=== PATIENT | male | born 1940 | race Caucasian/White ===

== ENCOUNTER 2020-03-14 07:51 | Outpatient (REF) | payer MEDICARE, SELFPAY ==
[2020-03-14 12:49] LABS: Alanine Aminotransferase 27 U/L (0-40); Albumin Level 4.3 g/dL (3.5-5.0); Alkaline Phosphatase 89 U/L (39-117); Anion Gap 12 (12-20); Aspartate Amino Transferase 19 U/L (5-37); Bilirubin Total 1.1 mg/dL (0.0-1.0); Blood Urea Nitrogen 19 mg/dL (9-16); Calcium 8.7 mg/dL (8.4-10.2); Carbon Dioxide 29 mmol/L (22-29); Chloride 104 mmol/L (96-108); Cholesterol 188 mg/dL; Estimated Glomerular Filt Rate 59; Glucose Fasting 99 mg/dL (60-99); HDL Cholesterol 43 mg/dL; LDL Cholesterol Calculated 109 mg/dl; Potassium 4.5 mmol/l (3.3-5.1); Sodium 140 mmol/L (135-145); Total Protein 6.7 g/dL (6.5-8.0); Triglycerides 183 mg/dL
[2020-03-14 13:11] LABS: TSH reflex Free T4 1.53 mIU/mL (0.32-4.0)
[2020-03-14 13:13] LABS: Creatinine Urine 106.23 mg/dL; Microalbum/Creatinine Ratio Ur 5.6 ug/mg cr
== END 2020-03-14 07:52 | disposition home or self-care (01) ==
LOC: HO.WFDLDS 07:51
PROVIDERS: Visit Provider Family Medicine
DX: Z00.00 Encounter for general adult medical examination without abnormal findings (principal); E78.5 Hyperlipidemia, unspecified; I10 Essential (primary) hypertension; Z12.5 Encounter for screening for malignant neoplasm of prostate
CPT/HCPCS: 36415; 80053; 80061; 82043; 84153; 84443

== ENCOUNTER 2020-07-05 07:58 | Outpatient (REF) | payer MEDICARE, SELFPAY ==
[2020-07-05 10:52] LABS: Cholesterol 167 mg/dL; HDL Cholesterol 44 mg/dL; LDL Cholesterol Calculated 100 mg/dl; Triglycerides 119 mg/dL
== END 2020-07-05 07:59 | disposition home or self-care (01) ==
LOC: HO.WFDLDS 07:58
PROVIDERS: Visit Provider Family Medicine
DX: Z00.00 Encounter for general adult medical examination without abnormal findings (principal); E78.5 Hyperlipidemia, unspecified
CPT/HCPCS: 36415; 80061

== ENCOUNTER 2020-09-27 07:09 | Outpatient (REF) | payer MEDICARE, SELFPAY ==
[2020-09-27 12:20] LABS: Cholesterol 153 mg/dL; HDL Cholesterol 40 mg/dL; LDL Cholesterol Calculated 87 mg/dl; Triglycerides 132 mg/dL
== END 2020-09-27 07:10 | disposition home or self-care (01) ==
LOC: HO.WFDLDS 07:09
PROVIDERS: Visit Provider Family Medicine
DX: Z00.00 Encounter for general adult medical examination without abnormal findings (principal); E78.5 Hyperlipidemia, unspecified
CPT/HCPCS: 36415; 80061

== ENCOUNTER 2020-12-30 08:37 | Outpatient (REF) | payer MEDICARE, SELFPAY ==
[2020-12-30 12:04] LABS: Anion Gap 12 (12-20); Blood Urea Nitrogen 19 mg/dL (9-16); Calcium 8.7 mg/dL (8.4-10.2); Carbon Dioxide 27 mmol/L (22-29); Chloride 103 mmol/L (96-108); Estimated Glomerular Filt Rate 60; Glucose Random 112 mg/dL (60-115); Potassium 4.6 mmol/L (3.3-5.1); Sodium 137 mmol/L (135-145)
[2020-12-30 12:43] LABS: Creatinine Urine 134.71 mg/dL; Microalbum/Creatinine Ratio Ur 5.9 ug/mg cr
== END 2020-12-30 08:38 | disposition home or self-care (01) ==
LOC: HO.WFDLDS 08:37
PROVIDERS: Visit Provider Family Medicine
DX: Z00.00 Encounter for general adult medical examination without abnormal findings (principal); I10 Essential (primary) hypertension
CPT/HCPCS: 36415; 80048; 82043

== ENCOUNTER 2021-01-07 07:15 | Outpatient (REF) | payer MEDICARE, SELFPAY ==
[2021-01-07 11:26] LABS: MANUAL DIFF FLAG NO
[2021-01-07 11:35] LABS: Basophils Absolute Auto 0.1 X10*3/uL (0.0-0.2); Basophils Percent Auto 0.9 % (0-2); Eosinophils Absolute Auto 0.5 X10*3/uL (0.0-0.4); Eosinophils Percent Auto 6.8 % (0-4); Hematocrit 47.4 % (42.0-52.0); Hemoglobin 15.6 g/dl (14.0-18.0); Imm Gran Abs Auto 0.02 X10*3/uL (0.00-0.03); Imm Gran Pct Auto 0.3 % (0.0-0.4); Lymphocytes Absolute Auto 2.5 X10*3/uL (1.2-4.9); Lymphocytes Percent Auto 38.2 % (20-40); Mean Corpuscular HGB Conc 32.9 g/dl (31.0-36.0); Mean Corpuscular Hemoglobin 29.9 pg (27.0-33.0); Mean Platelet Volume 9.2 fL (9.4-12.4); Monocytes Absolute Auto 0.5 X10*3/uL (0.1-1.2); Monocytes Percent Auto 6.8 % (2-11); Neutrophils Absolute Auto 3.1 x10*3/uL (2.0-8.3); Platelet Count 196 X10*3/uL (160-400); Red Blood Count 5.21 X10*6/uL (4.60-5.80); Red Cell Distribution Width 13.2 % (11.0-16.0); White Blood Count 6.6 X10*3/uL (4.8-10.8)
[2021-01-07 11:57] LABS: Alanine Aminotransferase 48 U/L (0-40); Albumin Level 4.2 g/dL (3.5-5.0); Alkaline Phosphatase 97 U/L (39-117); Anion Gap 13 (12-20); Aspartate Amino Transferase 26 U/L (5-37); Blood Urea Nitrogen 15 mg/dL (9-16); Calcium 8.9 mg/dL (8.4-10.2); Carbon Dioxide 27 mmol/L (22-29); Chloride 102 mmol/L (96-108); Estimated Glomerular Filt Rate > 60; Glucose Fasting 106 mg/dL (60-99); Potassium 4.5 mmol/L (3.3-5.1); Sodium 137 mmol/L (135-145); Total Protein 6.7 g/dL (6.5-8.0)
[2021-01-07 12:18] LABS: TSH reflex Free T4 2.16 uIU/mL (0.32-4.0)
[2021-01-13 13:57] LABS: Testosterone, Free 51.1 pg/mL (30.0-135.0); Testosterone, Total 437 ng/dL (250-1100)
== END 2021-01-07 07:16 | disposition home or self-care (01) ==
LOC: HO.WFDLDS 07:15
PROVIDERS: PCP Family Medicine; Visit Provider Family Medicine
DX: Z00.00 Encounter for general adult medical examination without abnormal findings (principal); R53.83 Other fatigue
CPT/HCPCS: 36415; 80053; 84402; 84403; 84443; 85025

== ENCOUNTER 2021-04-02 07:50 | Outpatient (REF) | payer OTHER, SELFPAY ==
[2021-04-02 12:07] LABS: Alanine Aminotransferase 36 U/L (0-40); Albumin Level 4.1 g/dL (3.5-5.0); Alkaline Phosphatase 97 U/L (39-117); Anion Gap 10 (12-20); Aspartate Amino Transferase 22 U/L (5-37); Bilirubin Total 1.4 mg/dL (0.0-1.0); Blood Urea Nitrogen 17 mg/dL (9-16); Calcium 9.1 mg/dL (8.4-10.2); Carbon Dioxide 29 mmol/L (22-29); Chloride 103 mmol/L (96-108); Cholesterol 171 mg/dL; Estimated Glomerular Filt Rate > 60; Glucose Fasting 109 mg/dL (60-99); HDL Cholesterol 41 mg/dL; LDL Cholesterol Calculated 87 mg/dl; Potassium 4.1 mmol/L (3.3-5.1); Sodium 138 mmol/L (135-145); Total Protein 6.7 g/dL (6.5-8.0); Triglycerides 215 mg/dL
== END 2021-04-02 07:51 | disposition home or self-care (01) ==
LOC: HO.WFDLDS 07:50
PROVIDERS: Visit Provider Family Medicine
DX: Z00.00 Encounter for general adult medical examination without abnormal findings (principal); Z12.5 Encounter for screening for malignant neoplasm of prostate
CPT/HCPCS: 36415; 80053; 80061; 84153

== ENCOUNTER → 2021-04-22 10:50 | Outpatient (BNVA) | payer OTHER, SELFPAY | PROVIDERS: PCP Family Medicine; Referring Provider Family Medicine; Visit Provider Nurse Practitioner Family | DX: G47.19 Other hypersomnia (principal); R06.83 Snoring; I10 Essential (primary) hypertension; Z86.73 Personal history of transient ischemic attack (TIA), and cerebral infarction without residual deficits | CPT/HCPCS: 99202 ==

== ENCOUNTER → 2021-07-02 10:04 | Outpatient (REF) | payer OTHER, SELFPAY | LOC: HO.SL 10:04 | PROVIDERS: PCP Family Medicine; Visit Provider Nurse Practitioner Family | DX: G47.19 Other hypersomnia (principal); R06.83 Snoring; I10 Essential (primary) hypertension; Z86.73 Personal history of transient ischemic attack (TIA), and cerebral infarction without residual deficits | CPT/HCPCS: 95806 ==

== ENCOUNTER 2021-07-30 07:51 | Outpatient (REF) | payer OTHER, SELFPAY ==
[2021-07-30 10:53] LABS: MANUAL DIFF FLAG NO
[2021-07-30 10:56] LABS: Basophils Percent Auto 0.5 % (0-2); Eosinophils Absolute Auto 0.3 X10*3/uL (0.0-0.4); Eosinophils Percent Auto 4.7 % (0-4); Hematocrit 45.4 % (42.0-52.0); Hemoglobin 14.9 g/dl (14.0-18.0); Imm Gran Abs Auto 0.03 X10*3/uL (0.00-0.03); Imm Gran Pct Auto 0.5 % (0.0-0.4); Lymphocytes Absolute Auto 1.9 X10*3/uL (1.2-4.9); Lymphocytes Percent Auto 33.6 % (20-40); Mean Corpuscular HGB Conc 32.8 g/dl (31.0-36.0); Mean Corpuscular Hemoglobin 29.8 pg (27.0-33.0); Mean Corpuscular Volume 90.8 fL (80.0-98.0); Mean Platelet Volume 9.8 fL (9.4-12.4); Monocytes Absolute Auto 0.4 X10*3/uL (0.1-1.2); Monocytes Percent Auto 7.7 % (2-11); Neutrophils Absolute Auto 3.1 x10*3/uL (2.0-8.3); Platelet Count 173 X10*3/uL (160-400); Red Cell Distribution Width 13.7 % (11.0-16.0); White Blood Count 5.8 X10*3/uL (4.8-10.8)
[2021-07-30 11:02] LABS: INTERNATIONAL NORM RATIO 1.1 (0.9-1.1); Prothrombin Time 12.1 SEC (9.9-13.0)
[2021-07-30 11:05] LABS: Anion Gap 10 (12-20); Blood Urea Nitrogen 16 mg/dL (9-16); Calcium 8.6 mg/dL (8.4-10.2); Carbon Dioxide 27 mmol/L (22-29); Chloride 106 mmol/L (96-108); Estimated Glomerular Filt Rate > 60; Glucose Random 107 mg/dL (60-115); Sodium 139 mmol/L (135-145)
== END 2021-07-30 07:52 | disposition home or self-care (01) ==
LOC: HO.WFDLDS 07:51
PROVIDERS: Visit Provider Family Medicine
DX: Z01.818 Encounter for other preprocedural examination (principal)
CPT/HCPCS: 36415; 80048; 85025; 85610

== ENCOUNTER 2022-05-26 07:50 | Outpatient (REF) | payer MEDICARE, SELFPAY ==
[2022-05-26 10:36] LABS: MANUAL DIFF FLAG NO
[2022-05-26 10:43] LABS: Basophils Absolute Auto 0.1 X10*3/uL (0.0-0.2); Basophils Percent Auto 0.8 % (0-2); Eosinophils Absolute Auto 0.3 X10*3/uL (0.0-0.4); Eosinophils Percent Auto 5.4 % (0-4); Hematocrit 44.7 % (42.0-52.0); Hemoglobin 14.9 g/dl (14.0-18.0); Imm Gran Abs Auto 0.02 X10*3/uL (0.00-0.03); Imm Gran Pct Auto 0.3 % (0.0-0.4); Lymphocytes Absolute Auto 2.5 X10*3/uL (1.2-4.9); Lymphocytes Percent Auto 39.7 % (20-40); Mean Corpuscular HGB Conc 33.3 g/dl (31.0-36.0); Mean Corpuscular Hemoglobin 30.1 pg (27.0-33.0); Mean Corpuscular Volume 90.3 fL (80.0-98.0); Mean Platelet Volume 9.2 fL (9.4-12.4); Monocytes Absolute Auto 0.5 X10*3/uL (0.1-1.2); Monocytes Percent Auto 7.3 % (2-11); Neutrophils Percent Auto 46.5 % (45-73); Platelet Count 167 X10*3/uL (160-400); Red Blood Count 4.95 X10*6/uL (4.60-5.80); Red Cell Distribution Width 13.4 % (11.0-16.0); White Blood Count 6.3 X10*3/uL (4.8-10.8)
[2022-05-26 10:49] LABS: Estimated Average Glucose 123 mg/dL; Hemoglobin A1c % 5.9 %
[2022-05-26 11:22] LABS: Alanine Aminotransferase 36 U/L (0-40); Albumin Level 4.2 g/dL (3.5-5.0); Alkaline Phosphatase 98 U/L (39-117); Anion Gap 10 (12-20); Aspartate Amino Transferase 20 U/L (5-37); Bilirubin Total 1.4 mg/dL (0.0-1.0); Blood Urea Nitrogen 21 mg/dL (9-16); Carbon Dioxide 27 mmol/L (22-29); Chloride 106 mmol/L (96-108); Cholesterol 161 mg/dL; Estimated Glomerular Filt Rate 56; Glucose Fasting 106 mg/dL (60-99); HDL Cholesterol 42 mg/dL; LDL Cholesterol Calculated 94 mg/dl; Sodium 139 mmol/L (135-145); Total Protein 6.4 g/dL (6.5-8.0); Triglycerides 128 mg/dL
[2022-05-26 11:27] LABS: Prostate Specific Antigen Scr 2.22 ng/mL (<0.05-4.0); TSH reflex Free T4 2.13 uIU/mL (0.32-4.0)
== END 2022-05-26 07:51 | disposition home or self-care (01) ==
LOC: HO.WFDLDS 07:50
PROVIDERS: Visit Provider Family Medicine
DX: Z00.00 Encounter for general adult medical examination without abnormal findings (principal); R73.01 Impaired fasting glucose; Z12.5 Encounter for screening for malignant neoplasm of prostate
CPT/HCPCS: 36415; 80053; 80061; 83036; 84153; 84443; 85025

== ENCOUNTER 2022-09-01 09:28 | Outpatient (AMB) | payer MEDICARE, SELFPAY ==
--- NOTE | 2022-09-01 09:33 | A.OFFPC_ITS ---
Vital Signs 09/01/22 09:34 Height 5 ft 10 in Weight 193 lb 6 oz BMI 27.7 BP 120/72 Blood Pressure Location Lt brachial Position Sitting Pulse 73 Pulse Source Pulse Oximeter Pulse Oximetry (%) 96 Oxygen Delivery Method Room Air Intake Visit Reasons: f/u hypertension and pre-diabetes Intake Note: Patient is here to follow up on hypertension and prediabetes. Allergies No Known Allergies Allergy (Verified 09/01/22 09:37) Medication List - Last Reconciled 09/01/22 by Soto Spears MD amlodipine 5 mg PO DAILY 90 days aspirin 81 mg PO DAILY atorvastatin 80 mg PO DAILY 90 days losartan 100 mg PO DAILY 90 days omeprazole 20 mg PO DAILY 90 days Tobacco use date assessed: 09/01/22 Fall risk assessment: 1 Fall in past year Last assessed Fall Risk: 09/01/22 Dental Screening Dental Screen Date: 09/01/22 Did you have a dental visit in the last 12 months?: Yes Did you have a dental problem in the last 6 months where you did not have access to dental care?: No Was dental information given to patient?: No HPI f/u hypertension and pre-diabetes HPI Details 82 y/o male presents to f/u hypertension and pre-diabetes. Blood pressure today is 120/72. He is on amlodipine 5mg and losartan 100mg. A1c today 09/01/22 is 5.6%. [facility] Surgical History History of rotator cuff surgery Family History Father Crohn's disease Mother Congestive heart failure Brother Lupus Social History Household Members: [facility] Alcohol intake: current Alcohol intake frequency: a few times a week Patient Tobacco Use Status: Never used Tobacco e-Cigarette/Vaping Use: Never Used Second Hand Smoke Exposure: No service: Yes Current occupational status: retired Current occupational exposures/hazards: No Cognitive needs: No Hearing needs: Yes (hearing aides) Vision needs: Yes (glasses) Questionnaire Thrive Questionnaire Date Thrive assessed: 02/27/22 ERWIN-7 AMB Questionnaire ERWIN-7 Date ERWIN - 7 assessed: 02/27/22 Source: Developed by Drs. Jacky Pittman, Anuradha Salas, Bryce Grissom and colleagues, with an educational flex from [employer]. Review of Systems Const Denies chills, Denies fatigue, Denies fever(s), Denies headache(s) and Denies weakness ENT Denies dizziness and Denies headache(s) Card Denies dyspnea Resp Denies cough, Denies dyspnea, Denies wheezing and Denies other (shortness of breath) Musc Denies numbness and Denies tingling Neuro Denies dizziness, Denies headache(s), Denies numbness, Denies tingling and Denies weakness Psych Denies anxiety and Denies depression Endo Denies fatigue Aller/Immun Denies wheezing Physical exam (Primary Care) Vital Signs: Last Vital Signs Pulse 73 09/01/22 09:34 BP 120/72 09/01/22 09:34 Pulse Ox 96 09/01/22 09:34 Oxygen Delivery Method Room Air 09/01/22 09:34 BMI result Body Mass Index 27.7 Tobacco/Smoking Status: Tobacco use Status Tobacco use date assessed 09/01/22 09/01/22 09:42 Patient Tobacco Use Status Never used Tobacco 09/01/22 09:36 e-Cigarette/Vaping Use Never Used 09/01/22 09:36 Thrive Assessment: Date of Thrive Assessment Date Thrive assessed 02/27/22 09/01/22 09:36 Const General: well developed; No acute distress Nutritional Appearance: well nourished Orientation/consciousness: patient oriented x3 HENMT Head: Yes normocephalic and Yes atraumatic Eyes General: appearance normal, both eyes and all related structures Pupils: Equal, round and reactive pupils present EOM: EOMs intact bilaterally Resp Effort & Inspection: normal respiratory effort Neuro General: patient oriented x3 and gait normal Cranial nerves: Yes Equal, round and reactive pupils present Psych Affect: normal affect Results AMB Hemoglobin A1c AMB Hemoglobin A1c 5.6 % Last Edit by Vickie Hope CMA on 09/01/22 09:50 Results Reviewed Results Reviewed: Laboratory Last Values Hgb A1c (Clinic) 5.6 % (4.0-6.0) 09/01/22 09:45 Assessment and Plan Assessment & Plan (1) Essential hypertension: Code(s): I10 - Essential (primary) hypertension Plan: Blood pressure is controlled. Goal is less than 140/90 Continue current medication regimen (2) Pre-diabetes: Code(s): R73.03 - Prediabetes Plan: A1c has improved from 5.9% to 5.6%. Encouraged diet low in sugars and starches and encouraged exercise Orders: Orders AMB Hemoglobin A1c Today Z13.9 - Encounter for screening, unspecified Coding Level of Care Code Est Pt Level 4 (26062) Diagnoses Essential hypertension I10 Pre-diabetes R73.03
[2022-09-01 09:34] VITALS: BP 120/72; PULSE 73; O2SAT 96; BMI 27.7
== END 2022-09-01 10:00 | disposition home or self-care (01) ==
PROVIDERS: Visit Provider Family Medicine
DX: I10 Essential (primary) hypertension (principal); R73.03 Prediabetes; Z13.9 Encounter for screening, unspecified
CPT/HCPCS: 83036; 99214

== ENCOUNTER 2023-02-05 09:22 | Outpatient (AMB) | payer MEDICARE, SELFPAY ==
--- NOTE | 2023-02-05 09:28 | A.OFFPC_ITS ---
Vital Signs 02/05/23 09:35 Height 5 ft 10 in Weight 194 lb BMI 27.8 BP 104/60 Blood Pressure Location Lt brachial Position Sitting Respiration 13 Pulse 85 Pulse Source Pulse Oximeter Pulse Oximetry (%) 100 Oxygen Delivery Method Room Air Intake Visit Reasons: f/u hypertension and pre-diabetes Intake Note: Patient is here for a follow up of hypertension and pre-diabetes. Patient reports his blood pressures at home have been 128/60 average. Patient reports he has no concerns at this time. Nicu Rn Required: No Accompanied by: Self / Same As Patient Allergies No Known Allergies Allergy (Verified 02/05/23 09:37) Tobacco use date assessed: 09/01/22 HPI f/u hypertension and pre-diabetes HPI Details Patient?presents?for?follow-up?hypertension?and?pre?diabetes Taking?medication?for?hypertension?as?prescribed.??No?problems?with?this?medicat ion He?is?watching?sugars?and?starches?and?maintaining?his?weight. [facility] Surgical History History of rotator cuff surgery Family History Father Crohn's disease Mother Congestive heart failure Brother Lupus Social History Household Members: [facility] Alcohol intake: current Alcohol intake frequency: a few times a week Patient Tobacco Use Status: Never used Tobacco e-Cigarette/Vaping Use: Never Used Second Hand Smoke Exposure: No service: Yes Current occupational status: retired Current occupational exposures/hazards: No Cognitive needs: No Hearing needs: Yes (hearing aides) Vision needs: Yes (glasses) Questionnaire Thrive Questionnaire Date Thrive assessed: 02/27/22 ERWIN-7 AMB Questionnaire ERWIN-7 Date ERWIN - 7 assessed: 02/27/22 Source: Developed by Drs. Jacky Pittman, Anuradha Salas, Bryce Grissom and colleagues, with an educational flex from [employer]. Review of Systems Const Denies chills, Denies fatigue, Denies fever(s), Denies headache(s) and Denies weakness ENT Denies dizziness and Denies headache(s) Card Denies chest pain, Denies lightheadedness, Denies dyspnea and Denies other (Palpitations) Resp Denies cough, Denies dyspnea, Denies wheezing and Denies other ( shortness of breath) Musc Denies numbness and Denies tingling Neuro Denies dizziness, Denies headache(s), Denies numbness, Denies tingling, Denies paresthesias and Denies weakness Psych Denies anxiety and Denies depression Endo Denies fatigue Aller/Immun Denies wheezing Physical exam (Primary Care) Vital Signs: Last Vital Signs Pulse 85 02/05/23 09:35 Resp 13 02/05/23 09:35 BP 104/60 02/05/23 09:35 Pulse Ox 100 02/05/23 09:35 Oxygen Delivery Method Room Air 02/05/23 09:35 BMI result Body Mass Index 27.8 Tobacco/Smoking Status: Tobacco use Status Tobacco use date assessed 09/01/22 02/05/23 09:28 Patient Tobacco Use Status Never used Tobacco 02/05/23 09:28 e-Cigarette/Vaping Use Never Used 02/05/23 09:28 Thrive Assessment: Date of Thrive Assessment Date Thrive assessed 02/27/22 02/05/23 09:28 Const General: no acute distress and well developed Nutritional Appearance: well nourished Orientation/consciousness: patient oriented x3 [facility] Head: Yes normocephalic and Yes atraumatic Eyes General: appearance normal, both eyes and all related structures Pupils: Equal, round and reactive pupils present EOM: EOMs intact bilaterally Resp Effort & Inspection: normal respiratory effort Auscultation: clear to auscultation bilaterally Cardio Rate: regular rate Rhythm: regular rhythm Heart sounds: S1 normal heart sound present, S2 normal heart sound present, no gallops, no murmurs and no rubs Neuro General: patient oriented x3 and gait normal Cranial nerves: Yes Equal, round and reactive pupils present Psych Affect: normal affect Assessment and Plan Assessment & Plan (1) Pre-diabetes: Code(s): R73.03 - Prediabetes Plan: A1c?at?last?check?had?decreased?from?5.9%?to?5.6%?and?he?is?maintaining?weight?a nd?diet Continue?diet?low?in?sugars?and?starches We?can?check?his?A1c?with?his?next?set?of?lab (2) Essential hypertension: Code(s): I10 - Essential (primary) hypertension Plan: Blood?pressure?is?a ?little?low?today?though?controlled?and?he?has?no?adverse?symptoms.??Goal?is?les s?than?140/90 He?says?blood?pressures?are?consistently?in?the?120s/70s?at?home. Continue?current?medication?regimen Hydrate?well Orders: Orders Comprehensive [place]. Panel Fast Today Z00.00 - Encounter for general adult medical examination without abnormal findings UA and rflx microscopic Today Z00.00 - Encounter for general adult medical examination without abnormal findings Complete Blood Count Auto Diff Today Z00.00 - Encounter for general adult medical examination without abnormal findings Lipid Panel Today Z00.00 - Encounter for general adult medical examination without abnormal findings Microalbumin, Random (w Creat) Today I10 - Essential (primary) hypertension Prostate Specific Antigen Scr Today Z12.5 - Encounter for screening for malignant neoplasm of prostate TSH reflex Free T4 Today Z00.00 - Encounter for general adult medical exa mination without abnormal findings Coding Level of Care Code Est Pt Level 3 (43749) Diagnoses Pre-diabetes R73.03 Essential hypertension I10
[2023-02-05 09:35] VITALS: BP 104/60; PULSE 85; RESP 13; O2SAT 100; BMI 27.8
== END 2023-02-05 09:57 | disposition home or self-care (01) ==
PROVIDERS: PCP Family Medicine; Visit Provider Family Medicine
DX: R73.03 Prediabetes (principal); I10 Essential (primary) hypertension
CPT/HCPCS: 99213

== ENCOUNTER 2023-06-14 08:11 | Outpatient (REF) | payer MEDICARE, SELFPAY ==
[2023-06-14 11:20] LABS: MANUAL DIFF FLAG NO
[2023-06-14 11:31] LABS: Basophils Absolute Auto 0.1 X10*3/uL (0.0-0.2); Basophils Percent Auto 0.8 % (0-2); Eosinophils Absolute Auto 0.3 X10*3/uL (0.0-0.4); Eosinophils Percent Auto 4.7 % (0-4); Hematocrit 44.4 % (42.0-52.0); Hemoglobin 14.7 g/dl (14.0-18.0); Imm Gran Abs Auto 0.03 X10*3/uL (0.00-0.03); Imm Gran Pct Auto 0.5 % (0.0-0.4); Lymphocytes Absolute Auto 2.2 X10*3/uL (1.2-4.9); Lymphocytes Percent Auto 37.1 % (20-40); Mean Corpuscular HGB Conc 33.1 g/dl (31.0-36.0); Mean Corpuscular Hemoglobin 30.4 pg (27.0-33.0); Mean Corpuscular Volume 91.9 fL (80.0-98.0); Mean Platelet Volume 9.6 fL (9.4-12.4); Monocytes Absolute Auto 0.5 X10*3/uL (0.1-1.2); Monocytes Percent Auto 8.4 % (2-11); Neutrophils Absolute Auto 2.9 x10*3/uL (2.0-8.3); Neutrophils Percent Auto 48.5 % (45-73); Platelet Count 161 X10*3/uL (160-400); Red Blood Count 4.83 X10*6/uL (4.60-5.80); Red Cell Distribution Width 13.5 % (11.0-16.0); White Blood Count 5.9 X10*3/uL (4.8-10.8)
[2023-06-14 12:16] LABS: Appearance Urine Clear; Color Urine Yellow; Glucose Urine UA Negative (Negative); Leukocyte Esterase Urine Negative (Negative); Nitrite Urine Negative (Negative); Specific Gravity - Urine 1.015 (1.005-1.025); Urine Blood Negative (Negative); Urine Ketones Negative (Negative); Urine Protein Negative (Neg-Trace)
[2023-06-14 12:50] LABS: Creatinine Urine 95.87 mg/dL; Microalbum/Creatinine Ratio Ur 7.3 ug/mg cr (<30)
[2023-06-14 13:03] LABS: Alanine Aminotransferase 33 U/L (0-40); Albumin Level 4.1 g/dL (3.5-5.0); Alkaline Phosphatase 86 U/L (39-117); Anion Gap 13 (12-20); Aspartate Amino Transferase 20 U/L (5-37); Bilirubin Total 1.2 mg/dL (0.0-1.0); Blood Urea Nitrogen 20 mg/dL (9-16); Calcium 9.1 mg/dL (8.4-10.2); Carbon Dioxide 28 mmol/L (22-29); Chloride 104 mmol/L (96-108); Cholesterol 135 mg/dL (<200); Estimated Glomerular Filt Rate 60; Glucose Fasting 99 mg/dL (60-99); HDL Cholesterol 41 mg/dL (>40); LDL Cholesterol Calculated 65 mg/dL (<100); Sodium 141 mmol/L (135-145); Total Protein 6.8 g/dL (6.5-8.0); Triglycerides 148 mg/dL (<150)
[2023-06-14 13:22] LABS: Prostate Specific Antigen Scr 2.44 ng/mL (<0.05-4.0)
[2023-06-14 13:26] LABS: TSH reflex Free T4 2.17 uIU/mL (0.32-4.0)
== END 2023-06-14 08:12 | disposition home or self-care (01) ==
LOC: HO.WFDLDS 08:11
PROVIDERS: Visit Provider Family Medicine
DX: Z00.00 Encounter for general adult medical examination without abnormal findings (principal); I10 Essential (primary) hypertension; Z12.5 Encounter for screening for malignant neoplasm of prostate
CPT/HCPCS: 36415; 80053; 80061; 81003; 82043; 82570; 84153; 84443; 85025

== ENCOUNTER 2023-06-17 08:55 | Outpatient (AMB) | payer MEDICARE, SELFPAY ==
[2023-06-17 08:56] VITALS: BP 124/62; PULSE 72; RESP 13; TEMP 36.4; O2SAT 97; BMI 28.8
--- NOTE | 2023-06-17 08:56 | A.OFFPC_ITS ---
Vital Signs 06/17/23 08:56 Height 5 ft 10 in Weight 200 lb 8 oz BMI 28.8 BP 124/62 Blood Pressure Location Rt brachial Position Sitting Respiration 13 Pulse 72 Pulse Source Pulse Oximeter Temp 97.5 F Temp Source Temporal Artery Scan Pulse Oximetry (%) 97 Oxygen Delivery Method Room Air Intake Visit Reasons: Extended exam with f/u labs and health maint. Intake Note: Patient does not have any concerns as of right now. Medical Claims Processor Required: No Accompanied by: Self / Same As Patient Allergies No Known Allergies Allergy (Verified 06/17/23 09:03) Medication List - Last Reconciled 06/17/23 by Soto Spears MD amlodipine 5 mg PO DAILY 90 days aspirin 81 mg PO DAILY atorvastatin 80 mg PO DAILY 90 days losartan 100 mg PO DAILY 90 days omeprazole 20 mg PO DAILY 90 days Tobacco use date assessed: 06/17/23 Fall risk assessment: No Falls in past year Last assessed Fall Risk: 06/17/23 Dental Screening Dental Screen Date: 06/17/23 Did you have a dental visit in the last 12 months?: No Did you have a dental problem in the last 6 months where you did not have access to dental care?: No Was dental information given to patient?: Patient has dentist HPI Extended exam with f/u labs and health maint. HPI Details 83 y/o male presents for an extended exa m with f/u labs and health maintenance. Labs were drawn 06/14/23. Reviewed labs with pt. Labs were fine. Pt reports some imbalance. [facility] Medical History (Updated 06/17/23 @ 10:23 by Soto Spears MD) No pertinent past medical history Surgical History History of rotator cuff surgery Family History Father Crohn's disease Mother Congestive heart failure Brother Lupus Social History Household Members: Spouse Both parents involved: No Caregiver staying overnight: No Housing: Condominium Are you a primary home care nurse to a significant other at home: No Do you presently have visiting nurse or other home services: No 75 years or older and lives alone: No Alcohol intake: current Alcohol intake frequency: a few times a week Patient Tobacco Use Status: Never used Tobacco e-Cigarette/Vaping Use: Never Used Second Hand Smoke Exposure: No service: Yes Current occupational status: retired Current occupational exposures/hazards: No Cognitive needs: No Hearing needs: Yes (hearing aides) Vision needs: Yes (glasses) Questionnaire PHQ-9 Over the last 2 weeks, how often have you been bothered by any of the following problems? 1. Little interest or pleasure in doing things: not at all 2. Feeling down, depressed, or hopeless: several days 3. Trouble falling or staying asleep, or sleeping too much: not at all 4. Feeling tired or having little energy: several days 5. Poor appetite or overeating: nearly every day 6. Feeling bad about yourself - or that you are a failure or have let yourself or your family down: not at all 7. Trouble concentrating on things, such as reading the newspaper or watching television: not at all 8. Moving or speaking so slowly that other people could have noticed. Or the opposite - being so fidgety or restless that you have been moving around a lot more than usual: not at all 9. Thoughts that you would be better off or of hurting yourself in some way: not at all Total score: 5 Depression Screening Interpretation: Negative Depression Screening Done: Yes 25772 - PHQ-9 Billing: Yes Source: Developed by Drs. Jacky Pittman, Anuradha aSlas, Bryce Grissom and colleagues, with an educational flex from [employer] Document Preparation. Thrive Questionnaire Date Thrive assessed: 06/17/23 I am a: Patient What is your living situation today?: I have a steady place to live Within the past 12 months, did the food you bought not last and you didn't have the money to get more?: Never true Within the past 12 months, did you worry whether your food would run out before you got money to buy more?: Never true Do you have trouble paying for medicines?: No Do you have trouble getting transportation to medical appointments?: No Do you have trouble paying your heating and electricity bill?: No Do you have trouble taking care of your child, family member or friend?: No Do you have trouble with day-to-day activities such as bathing, preparing meals, shopping, managing finances, etc.?: No Are you currently unemployed and looking for a job?: No Are you interested in more education?: No Please select the resources that you would like help with: None Currently or been in a relationship where the following occur: no concerns reported THRIVE Score: 0 AUDIT C Alcohol Use Questionnaire (AUDIT-C) 1. How often do you have a drink containing alcohol?: 2-4 times a month 2. How many drinks containing alcohol do you have on a typical day when you are drinking?: 1 or 2 3. How often do you have six or more drinks on one occasion?: Never Total Score: 2 ERWIN-7 AMB Questionnaire ERWIN-7 Date ERWIN - 7 assessed: 06/17/23 Feeling nervous, anxious, or on edge: 1 = Several days Not being able to stop or control worryin = Several days Worrying too much about different things: 1 = Several days Trouble relaxin = Not at all Being so restless that it is hard to sit still: 0 = Not at all Becoming easily annoyed or irritable: 0 = Not at all Feeling afraid as if something awful might happen: 1 = Several days Total ERWIN-7 score (0-4 normal; 5-9 mild; 10-14 moderate; 15-21 severe): 4 Source: Developed by Drs. Jacky Pittman, Anuradha Salas, Bryce Grissom and colleagues, with an educational flex from [employer] Document Preparation. ERWIN-7 Assessment Billing ERWIN-7 Assessment Tool: ERWIN-7 Assessment 56418 Review of Systems Const Denies chills, Denies fatigue, Denies fever(s), Denies headache(s) and Denies weakness Eyes Denies change in vision ENT Denies dizziness, Denies headache(s), Denies hearing loss, Denies nasal congestion, Denies sinus pain, Denies sinus pressure and Denies sore throat Card Denies chest pain, Denies lightheadedness, Denies dyspnea and Denies other (palpitations) Resp Denies cough, Denies dyspnea and Denies wheezing GI Denies abdominal pain, Denies melena, Denies hematochezia, Denies change in bowel habits, Denies dyspepsia and Denies nausea Denies hematuria and Denies dysuria Musc Denies abnormal gait, Denies myalgias, Denies arthralgias, Denies numbness and Denies tingling Skin/Breast Denies rash, Denies unusual bruising and Denies wounds Neuro Denies abnormal gait, Denies dizziness, Denies headache(s), Denies memory loss, Denies numbness, Denies Sensory deficit (Neuro), Denies tingling and Denies weakness Psych Denies anxiety, Denies depression and Denies memory loss Endo Denies cold intolerance, Denies fatigue, Denies heat intolerance, Denies polydipsia and Denies polyuria Al/Lymph Denies easy bleeding and Denies easy bruising Aller/Immun Denies wheezing Physical exam (Primary Care) Vital Signs: Last Vital Signs Temp 97.5 F 06/17/23 08:56 Pulse 72 06/17/23 08:56 Resp 13 06/17/23 08:56 BP 124/62 06/17/23 08:56 Pulse Ox 97 06/17/23 08:56 Oxygen Delivery Method Room Air 06/17/23 08:56 BMI result Body Mass Index 28.8 Tobacco/Smoking Status: Tobacco use Status Tobacco use date assessed 06/17/23 06/17/23 09:08 Patient Tobacco Use Status Never used Tobacco 06/17/23 09:08 e-Cigarette/Vaping Use Never Used 06/17/23 09:08 PHQ-9: PHQ-9 Score PHQ-9: Total score 5 06/17/23 10:09 Depression Screening Interpretation: Negative Thrive Assessment: Date of Thrive Assessment Date Thrive assessed 06/17/23 06/17/23 09:08 Currently or been in a relationship where the following occur: no concerns reported Const General: no acute distress, well developed, alert and awake Nutritional Appearance: well nourished Orientation/consciousness: patient oriented x3 HENMT Head: Yes normocephalic and Yes atraumatic Ears: hearing grossly normal bilaterally and TM's normal bilaterally General nose exam: Normal external nose present and Normal nares present Mouth: Normal oral and palatal mucosa present and moist mucous membranes Teeth and gingiva: dentition normal Throat: Yes posterior oropharynx normal Eyes General: appearance normal, both eyes and all related structures Pupils: Equal, round and reactive pupils present and Pupil accommodation reflex normal EOM: EOMs intact bilaterally Neck Neck: Yes normal visual inspection, Yes no lymphadenopathy and Yes trachea midline Thyroid: Thyroid normal Carotids: no bruits Lymphatic: no lymphadenopathy noted Chest Chest palpation & inspection: normal inspection of the chest Resp Effort & Inspection: normal respiratory effort Auscultation: clear to auscultation bilaterally Cardio Rate: regular rate Rhythm: regular rhythm Heart sounds: S1 normal heart sound present, S2 normal heart sound present, no gallops, no murmurs and no rubs Bruits: no abdominal aortic bruits and no carotid bruits GI Palpation (GI): No Abdominal aortic bruit present, Soft to palpation, nontender, No hepatosplenomegaly present and No Rebound tenderness present Auscultation: normal bowel sounds General: Yes no CVA tenderness Back/Spine/Pelvis Back: no CVA tenderness Cervical Spine: cervical ROM normal and No Cervical spine tenderness Thoracic/Lumbar Spine: thoraco-lumbar ROM normal, No pain with thoraco-lumbar ROM, No thoracic spinal tenderness and No lumbar spinal tenderness Skin Lesions: no lesions Rashes: no rashes Trauma: no lacerations or abrasions Wounds: no wounds Nails: normal Neuro General: patient oriented x3 Cranial nerves: Yes Equal, round and reactive pupils present Cognition (Neuro): normal cognition Gait exam (Neuro): Normal gait present Motor exam (neuro): 5/5 motor strength present throughout Sensory Exam: No Sensory deficit (Neuro) Deep tendon reflexes (DTR's): Right patellar reflex intensity grade: 2+ and Left patellar reflex intensity grade: 2+ Extrem General: Yes normal to inspection and No edema Psych Appearance: grossly normal Affect: normal affect Attitude: cooperative Thought process: Normal thought process present Assessment and Plan Assessment & Plan (1) Pre-diabetes: Code(s): R73.03 - Prediabetes Plan: A1c?6.0%;?still?in?pre?diabetes?range Encouraged?diet?lower?in?sugars?and?starches Encouraged?exercise?and?weight?control (2) Imbalance: Code(s): R26.89 - Other abnormalities of gait and mobility Plan: Mild?imbalance?for?the?past?few?years?which?he?attributes?to?his?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 Declined?physical?therapy/balance?training?but?he?will?let?me?know?if?this?stevens es?in?any?way. 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 Referred?to?dermatology (6) Annual physical exam: Code(s): Z00.00 - Encounter for general adult medical examination without abnormal findings Plan: 83-year-old?male?presents?for?an?extended?exam Encouraged?healthy?diet?with?active?lifestyle?and?plenty?of?exercise Orders: Orders AMB Hemoglobin A1c Today R73.01 - Impaired fasting glucose, R73.03 - Prediabetes Referrals Dermatology Referral D48.5 - Neoplasm of uncertain behavior of skin Coding Level of Care Code Est Pt Level 4 (89367) Diagnoses Pre-diabetes R73.03 Imbalance R26.89 Hyperlipidemia E78.5 Essential hypertension I10 Neoplasm of uncertain behavior of skin D48.5 Annual physical exam Z00.00 Additional Codes ERWIN-7 Assessment Billing - ERWIN-7 Assessment Tool: ERWIN-7 Assessment 25111 ([id number])
== END 2023-06-17 10:44 | disposition home or self-care (01) ==
PROVIDERS: PCP Family Medicine; Visit Provider Family Medicine
DX: Z00.00 Encounter for general adult medical examination without abnormal findings (principal); R73.03 Prediabetes; R26.89 Other abnormalities of gait and mobility; E78.5 Hyperlipidemia, unspecified; I10 Essential (primary) hypertension; D48.5 Neoplasm of uncertain behavior of skin
CPT/HCPCS: 99397

== ENCOUNTER 2024-02-11 08:20 | Outpatient (AMB) | payer MEDICARE, SELFPAY ==
--- NOTE | 2024-02-11 08:33 | MHC.PC.OV ---
Vital Signs 02/11/24 08:40 Height 5 ft 10 in Weight 201 lb 6 oz BMI 28.9 BP 126/60 Blood Pressure Location Lt brachial Position Sitting Respiration 16 Pulse 86 Pulse Source Palpation Temp 98.6 F Temp Source Oral Intake Visit Reasons: hypertension, pre diabetes and chronic conditions. Intake Note: f/u htn and pre-dm Allergies No Known Allergies Allergy (Verified 02/11/24 08:40) Medication List - Last Reconciled 02/11/24 by Soto Spears MD amlodipine 5 mg PO DAILY 90 days aspirin 81 mg PO DAILY atorvastatin 80 mg PO DAILY 90 days losartan 100 mg PO DAILY 90 days omeprazole 20 mg PO DAILY 90 days Tobacco use date assessed: 06/17/23 Dental Screening Dental Screen Date: 06/17/23 HPI hypertension, pre diabetes and chronic conditions. HPI Details 83 y/o male presents to f/u hypertension, pre-diabetes, chronic conditions. A1c today 02/11/24 5.9%, which improved from 6.0%. Blood pressure today 126/60, 86p. He is on losartan, amlodipine. HPI Comments History of Present Illness Details Documentation assistance for Soto Spears MD, was provided by Clayton Cortez,? Production Maintenance Technician on 02/11/2024 at 8:32 AM EST. I, Dr. Spears, have read, observed, and verified documentation. [facility] Medical History (Updated 06/17/23 @ 10:23 by Soto Spears MD) No pertinent past medical history Surgical History History of rotator cuff surgery Family History Father Crohn's disease Mother Congestive heart failure Brother Lupus Social History Household Members: Spouse Both parents involved: No Caregiver staying overnight: No Housing: Condominium Are you a primary primary care nurse practitioner to a significant other at home: No Do you presently have visiting nurse or other home services: No 75 years or older and lives alone: No Alcohol intake: current Alcohol intake frequency: a few times a week Patient Tobacco Use Status: Never used Tobacco e-Cigarette/Vaping Use: Never Used Second Hand Smoke Exposure: No service: Yes Current occupational status: retired Current occupational exposures/hazards: No Cognitive needs: No Hearing needs: Yes (hearing aides) Vision needs: Yes (glasses) Questionnaire Thrive Questionnaire Date Thrive assessed: 02/04/24 I am a: Patient What is your living situation today?: I have a steady place to live Within the past 12 months, did the food you bought not last and you didn't have the money to get more?: Sometimes True Within the past 12 months, did you worry whether your food would run out before you got money to buy more?: Sometimes True Do you have trouble paying for medicines?: No Do you have trouble getting transportation to medical appointments?: No Do you have trouble paying your heating and electricity bill?: No Do you have trouble taking care of your child, family member or friend?: No Do you have trouble with day-to-day activities such as bathing, preparing meals, shopping, managing finances, etc.?: No Are you currently unemployed and looking for a job?: No Are you interested in more education?: No Please select the resources that you would like help with: Utilities Currently or been in a relationship where the following occur: No concerns reported THRIVE Score: 2 AUDIT C Alcohol Use Questionnaire (AUDIT-C) 1. How often do you have a drink containing alcohol?: 2-4 times a month 2. How many drinks containing alcohol do you have on a typical day when you are drinking?: 1 or 2 3. How often do you have six or more drinks on one occasion?: Never Total Score: 2 ERWIN-7 AMB Questionnaire ERWIN-7 Date ERWIN - 7 assessed: 06/17/23 Feeling nervous, anxious, or on edge: 0 = Not at all Worrying too much about different things: 0 = Not at all Trouble relaxin = Not at all Being so restless that it is hard to sit still: 0 = Not at all Becoming easily annoyed or irritable: 0 = Not at all Feeling afraid as if something awful might happen: 0 = Not at all Source: Developed by Drs. Jacky Pittman, Anuradha Salas, Bryce Grissom and colleagues, with an educational flex from [employer]. Review of Systems Const Denies chills, Denies fatigue, Denies fever(s), Denies headache(s) and Denies weakness ENT Denies dizziness and Denies headache(s) Card Denies dyspnea Resp Denies cough, Denies dyspnea, Denies wheezing and Denies other (shortness of breath) Musc Denies numbness and Denies tingling Neuro Denies dizziness, Denies headache(s), Denies numbness, Denies tingling and Denies weakness Psych Denies anxiety and Denies depression Endo Denies fatigue Aller/Immun Denies wheezing Physical exam (Primary Care) Vital Signs: Last Vital Signs Temp 98.6 F 02/11/24 08:40 Pulse 86 02/11/24 08:40 Resp 16 02/11/24 08:40 BP 126/60 02/11/24 08:40 BMI result Body Mass Index 28.9 Tobacco/Smoking Status: Tobacco use Status Tobacco use date assessed 06/17/23 02/11/24 08:33 Patient Tobacco Use Status Never used Tobacco 02/11/24 08:33 e-Cigarette/Vaping Use Never Used 02/11/24 08:33 Thrive Assessment: Date of Thrive Assessment Date Thrive assessed 02/04/24 02/11/24 08:33 Currently or been in a relationship where the following occur: No concerns reported Const General: well developed; No acute distress Nutritional Appearance: well nourished Orientation/consciousness: patient oriented x3 [facility] Head: Yes normocephalic and Yes atraumatic Eyes General: appearance normal, both eyes and all related structures Pupils: Equal, round and reactive pupils present EOM: EOMs intact bilaterally Resp Effort & Inspection: normal respiratory effort Neuro General: patient oriented x3 and gait normal Cranial nerves: Yes Equal, round and reactive pupils present Psych Affect: normal affect Coding Level of Care Code Est Pt Level 3 (80378) Diagnoses Essential hypertension I10 Pre-diabetes R73.03 Assessment & Plan Assessment & Plan (1) Essential hypertension: Code(s): I10 - Essential (primary) hypertension Category: Medical Plan: Blood?pressure?is?controlled.??Goal?is?less?than?140/90 Continue?current?medications (2) Pre-diabetes: Code(s): R73.03 - Prediabetes Category: Medical Plan: A1c?5.9%?today?in?down?from?6.0?at?last?check Encouraged?ongoing?diet?low?in?sugars?and?starches,?weight?control?and?exercise
[2024-02-11 08:40] VITALS: BP 126/60; PULSE 86; RESP 16; TEMP 37; BMI 28.9
== END 2024-02-11 08:58 | disposition home or self-care (01) ==
PROVIDERS: PCP Family Medicine; Visit Provider Family Medicine
DX: I10 Essential (primary) hypertension (principal); R73.03 Prediabetes

== ENCOUNTER → 2024-02-11 08:20 | Outpatient (BNVA) | payer MEDICARE, SELFPAY | PROVIDERS: PCP Family Medicine; Visit Provider Family Medicine | DX: I10 Essential (primary) hypertension (principal); R73.03 Prediabetes | CPT/HCPCS: 99212 ==

== ENCOUNTER 2024-05-30 09:31 | Outpatient (AMB) | payer OTHER, SELFPAY ==
--- NOTE | 2024-05-30 09:44 | MHC.PC.OV ---
Vital Signs 05/30/24 09:50 Height 5 ft 10 in Weight 202 lb BMI 29.0 BP 120/80 Blood Pressure Location Lt brachial Position Sitting Pulse 70 Pulse Source Pulse Oximeter Temp 98.4 F Temp Source Oral Pulse Oximetry (%) 98 Oxygen Delivery Method Room Air Intake Visit Reasons: f/u hypertension, pre-diabetes Intake Note: patient is coming in for htn and pre diabetes follow-up Agricultural Inspector Required: No Allergies No Known Allergies Allergy (Verified 05/30/24 09:49) Medication List - Last Reconciled 05/30/24 by Soto Spears MD amlodipine 5 mg PO DAILY 90 days aspirin 81 mg PO DAILY atorvastatin 80 mg PO DAILY 90 days losartan 100 mg PO DAILY 90 days omeprazole 20 mg PO DAILY 90 days Tobacco use date assessed: 05/30/24 Dental Screening Dental Screen Date: 06/17/23 HPI f/u hypertension, pre-diabetes HPI Details 84 y/o male presents to f/u HTN, pre-diabetes. Blood pressure today 120/80. He is on amlodipine 5mg, losartan 100mg daily. A1c today 6.0%. [facility] Medical History (Updated 06/17/23 @ 10:23 by Soto Spears MD) No pertinent past medical history Surgical History History of rotator cuff surgery Family History Father Crohn's disease Mother Congestive heart failure Brother Lupus Social History Household Members: Spouse Both parents involved: No Caregiver staying overnight: No Housing: Condominium Are you a primary career development engineer to a significant other at home: No Do you presently have visiting nurse or other home services: No 75 years or older and lives alone: No Alcohol intake: current Alcohol intake frequency: a few times a week Patient Tobacco Use Status: Never used Tobacco e-Cigarette/Vaping Use: Never Used Second Hand Smoke Exposure: No service: Yes Current occupational status: retired Current occupational exposures/hazards: No Cognitive needs: No Hearing needs: Yes (hearing aides) Vision needs: Yes (glasses) Questionnaire Thrive Questionnaire Date Thrive assessed: 05/24/24 ERWIN-7 AMB Questionnaire ERWIN-7 Date ERWIN - 7 assessed: 06/17/23 Source: Developed by Drs. Jacky Pittman, Anuradha Salas, Bryce Grissom and colleagues, with an educational flex from [employer]. Review of Systems Const Denies chills, Denies fatigue, Denies fever(s), Denies headache(s) and Denies weakness ENT Denies dizziness and Denies headache(s) Card Denies dyspnea Resp Denies cough, Denies dyspnea, Denies wheezing and Denies other (shortness of breath) Musc Denies numbness and Denies tingling Neuro Denies dizziness, Denies headache(s), Denies numbness, Denies tingling and Denies weakness Psych Denies anxiety and Denies depression Endo Denies fatigue Aller/Immun Denies wheezing Physical exam (Primary Care) Vital Signs: Last Vital Signs Temp 98.4 F 05/30/24 09:50 Pulse 70 05/30/24 09:50 BP 120/80 05/30/24 09:50 Pulse Ox 98 05/30/24 09:50 Oxygen Delivery Method Room Air 05/30/24 09:50 BMI result Body Mass Index 29.0 Tobacco/Smoking Status: Tobacco use Status Tobacco use date assessed 05/30/24 05/30/24 09:53 Patient Tobacco Use Status Never used Tobacco 05/30/24 09:44 e-Cigarette/Vaping Use Never Used 05/30/24 09:44 Thrive Assessment: Date of Thrive Assessment Date Thrive assessed 05/24/24 05/30/24 09:44 Const General: well developed; No acute distress Nutritional Appearance: well nourished Orientation/consciousness: [facility] oriented x3 [facility] Head: Yes normocephalic and Yes atraumatic Eyes General: appearance normal, both eyes and all related structures Pupils: Equal, round and reactive pupils present EOM: EOMs intact bilaterally Resp Effort & Inspection: normal respiratory effort Auscultation: clear to auscultation bilaterally Cardio Rate: regular rate Rhythm: regular rhythm Heart sounds: S1 normal heart sound present, S2 normal heart sound present, no gallops, no murmurs and no rubs Neuro General: patient oriented x3 and gait normal Cranial nerves: Yes Equal, round and reactive pupils present Psych Affect: normal affect Coding Level of Care Code Est Pt Level 3 (73925) Diagnoses Essential hypertension I10 Pre-diabetes R73.03 Assessment & Plan Assessment & Plan (1) Essential hypertension: Code(s): I10 - Essential (primary) hypertension Category: Medical Plan: Blood?pressure?120/80?is?good?control.??Goal?is?less?than?140/90 Continue?current?medications (2) Pre-diabetes: Code(s): R73.03 - Prediabetes Category: Medical Plan: A1c?6.0%. ?Still?in?pre?diabetes?range Encouraged?diet?low?in?sugars?and?starches Encouraged?exercise?and?some?weight?loss
[2024-05-30 09:50] VITALS: BP 120/80; PULSE 70; TEMP 36.9; O2SAT 98; BMI 29.0
== END 2024-05-30 10:20 | disposition home or self-care (01) ==
LOC: HO.HMCFM 09:31
PROVIDERS: PCP Family Medicine; Visit Provider Family Medicine
DX: I10 Essential (primary) hypertension (principal); R73.03 Prediabetes

== ENCOUNTER → 2024-05-30 09:31 | Outpatient (BNVA) | payer OTHER, SELFPAY | PROVIDERS: PCP Family Medicine; Visit Provider Family Medicine | DX: R73.03 Prediabetes (principal); I10 Essential (primary) hypertension; Z79.899 Other long term (current) drug therapy | CPT/HCPCS: 83036 ==

== ENCOUNTER 2024-11-01 15:51 | Outpatient (AMB) | payer OTHER, SELFPAY ==
--- NOTE | 2024-11-01 15:57 | A.OFFPC_ITS ---
Vital Signs 11/01/24 16:01 Height 5 ft 10 in Weight 192 lb BMI 27.5 BP 112/62 Blood Pressure Location Rt brachial Position Sitting Respiration 16 Pulse 72 Pulse Source Pulse Oximeter Temp 97.9 F Temp Source Temporal Artery Scan Pulse Oximetry (%) 95 Oxygen Delivery Method Room Air Intake Visit Reasons: f/u HTN, preDM RE Intake Note: Can presents in the office today for prediabetes and hypertension as well as his Cologuard results. Allergies No Known Allergies Allergy (Verified 11/01/24 16:00) Medication List - Last Reconciled 11/01/24 by Soto Spears MD amlodipine 5 mg PO DAILY 90 days aspirin 81 mg PO DAILY atorvastatin 80 mg PO DAILY 90 days losartan 100 mg PO DAILY 90 days omeprazole 20 mg PO DAILY 90 days Tobacco use date assessed: 11/01/24 Fall risk assessment: No Falls in past year Last assessed Fall Risk: 11/01/24 Dental Screening Dental Screen Date: 11/01/24 Did you have a dental visit in the last 12 months?: Yes Did you have a dental problem in the last 6 months where you did not have access to dental care?: No Was dental information given to patient?: Patient has dentist HPI f/u HTN, preDM RE HPI Details 84 y/o male presents to f/u HTN, pre-ana maria norma. BP today 112/62, 72p. He is on amlodipine 5mg, losartan 100mg daily. A1c today 11/01/24 5.8%. [facility] Medical History (Updated 10/25/24 @ 11:02 by SONIA Alonso-) No pertinent past medical history Surgical History History of rotator cuff surgery Family History Father Crohn's disease Mother Congestive heart failure Brother Lupus Social History (Updated 11/01/24 @ 16:01 by Rhiannon Juárez CMA) Household Members: Spouse Both parents involved: No Caregiver staying overnight: No Housing: Condominium Are you a primary personal care worker to a significant other at home: No Do you presently have visiting nurse or other home services: No 75 years or older and lives alone: No Alcohol intake: current Alcohol intake frequency: a few times a week Patient Tobacco Use Status: Never used Tobacco e-Cigarette/Vaping Use: Never Used Second Hand Smoke Exposure: No service: Yes Current occupational status: retired Current occupational exposures/hazards: No Cognitive needs: No Hearing needs: Yes (hearing aides) Vision needs: Yes (glasses) Questionnaire Thrive Questionnaire Date Thrive assessed: 05/24/24 I am a: Patient What is your living situation today?: I have a steady place to live Within the past 12 months, did the food you bought not last and you didn't have the money to get more?: I choose not to answer this question Within the past 12 months, did you worry whether your food would run out before you got money to buy more?: I choose not to answer this question Do you have trouble paying for medicines?: I choose not to answer this question Do you have trouble getting transportation to medical appointments?: No Do you have trouble paying your heating and electricity bill?: I choose not to answer this question Do you have trouble taking care of your child, family member or friend?: I choose not to answer this question Do you have trouble with day-to-day activities such as bathing, preparing meals, shopping, managing finances, etc.?: No Are you currently unemployed and looking for a job?: No Are you interested in more education?: No Please select the resources that you would like help with: Utilities Currently or been in a relationship where the following occur: No concerns reported THRIVE Score: 0 ERWIN-7 AMB Questionnaire ERWIN-7 Date ERWIN - 7 assessed: 06/17/23 Source: Developed by Drs. Jacky Pittman, Anuradha Salas, Bryce Grissom and colleagues, with an educational flex from [employer]. Review of Systems Const Denies chills, Denies fatigue, Denies fever(s), Denies headache(s) and Denies weakness ENT Denies dizziness and Denies headache(s) Card Denies dyspnea Resp Denies cough, Denies dyspnea, Denies wheezing and Denies other (shortness of breath) Musc Denies numbness and Denies tingling Neuro Denies dizziness, Denies headache(s), Denies numbness, Denies tingling and Denies weakness Psych Denies anxiety and Denies depression Endo Denies fatigue Aller/Immun Denies wheezing Physical exam (Primary Care) Vital Signs: Last Vital Signs Temp 97.9 F 11/01/24 16:01 Pulse 72 11/01/24 16:01 Resp 16 11/01/24 16:01 BP 112/62 11/01/24 16:01 Pulse Ox 95 11/01/24 16:01 Oxygen Delivery Method Room Air 11/01/24 16:01 BMI result Body Mass Index 27.5 Tobacco/Smoking Status: Tobacco use Status Tobacco use date assessed 11/01/24 11/01/24 16:05 Patient Tobacco Use Status Never used Tobacco 11/01/24 16:01 e-Cigarette/Vaping Use Never Used 11/01/24 16:01 Thrive Assessment: Date of Thrive Assessment Date Thrive assessed 05/24/24 11/01/24 15:59 Currently or been in a relationship where the following occur: No concerns reported Const General: well developed; No acute distress Nutritional Appearance: well nourished Orientation/consciousness: patient oriented x3 [facility] Head: Yes normocephalic and Yes atraumatic Eyes General: appearance normal, both eyes and all related structures Pupils: Equal, round and reactive pupils present EOM: EOMs intact bilaterally Resp Effort & Inspection: normal respiratory effort Neuro General: patient oriented x3 and gait normal Cranial nerves: Yes Equal, round and reactive pupils present Psych Affect: normal affect Results AMB Hemoglobin A1c AMB Hemoglobin A1c 5.8 % Last Edit by Rhiannon Juárez CMA on 11/01/24 16:18 Results Reviewed Results Reviewed: Laboratory Last Values Hgb A1c (Clinic) 5.8 % (4.0-6.0) 11/01/24 16:06 Coding Level of Care Code Est Pt Level 4 (12427) Diagnoses Pre-diabetes R73.03 Essential hypertension I10 History of TIA (transient ischemic attack) Z86.73 Screening for colon cancer Z12.11 Positive colorectal cancer screening using Cologuard test R19.5 Assessment & Plan Assessment & Plan (1) Pre-diabetes: Code(s): R73.03 - Prediabetes Category: Medical Plan: A1c 5.8% -lower end of pre diabetes range and improved. Continue working on diet low in sugars and starches. Continue regular exercise and control weight (2) Essential hypertension: Code(s): I10 - Essential (primary) hypertension Category: Medical Plan: Blood pressure is controlled. Goal is less than 130/80 Continue current medications (3) History of TIA (transient ischemic attack): Code(s): Z86.73 - Personal history of transient ischemic attack (TIA), and cerebral infarction without residual deficits Category: Medical Plan: History of TIA. No residual effects He is on atorvastatin and aspirin Blood pressure is well controlled. Lipids were well controlled at last check Will recheck lipids with his pre physical labs before his May appointment (4) Screening for colon cancer: Code(s): Z12.11 - Encounter for screening for malignant neoplasm of colon Category: Medical (5) Positive colorectal cancer screening using Cologuard test: Onset Date: ~10/2024 Code(s): R19.5 - Other fecal abnormalities Category: Medical Plan Positive Cologuard test, ordered by Nathalie. Patient is 84 years old but quite healthy. Will refer him to Gastroenterology to consider next steps. Orders: Orders AMB Hemoglobin A1c Today R73.03 - Prediabetes Referrals Gastroenterology Referral R19.5 - Other fecal abnormalities
[2024-11-01 16:01] VITALS: BP 112/62; PULSE 72; RESP 16; TEMP 36.6; O2SAT 95; BMI 27.5
== END 2024-11-01 16:58 | disposition home or self-care (01) ==
LOC: HO.HMCFM 15:52
PROVIDERS: PCP Family Medicine; Visit Provider Family Medicine
DX: R73.03 Prediabetes (principal); I10 Essential (primary) hypertension; Z86.73 Personal history of transient ischemic attack (TIA), and cerebral infarction without residual deficits; Z12.11 Encounter for screening for malignant neoplasm of colon; R19.5 Other fecal abnormalities

== ENCOUNTER → 2024-11-01 15:51 | Outpatient (BNVA) | payer OTHER, SELFPAY | PROVIDERS: PCP Family Medicine; Visit Provider Family Medicine | DX: I10 Essential (primary) hypertension (principal); R73.03 Prediabetes; R19.5 Other fecal abnormalities; Z86.73 Personal history of transient ischemic attack (TIA), and cerebral infarction without residual deficits | CPT/HCPCS: 83036 ==

== ENCOUNTER 2024-11-06 09:12 | Outpatient (AMB) | payer OTHER, SELFPAY ==
--- NOTE | 2024-11-06 10:07 | MHC.PC.OV ---
Vital Signs 11/06/24 10:10 Height 5 ft 10 in Weight 196 lb 5 oz BMI 28.2 BP 124/66 Blood Pressure Location Lt brachial Position Sitting Respiration 12 Pulse 66 Pulse Source Pulse Oximeter Temp 97.8 F Temp Source Oral Pulse Oximetry (%) 93 Oxygen Delivery Method Room Air Intake Visit Reasons: uinating blood Intake Note: Patient c/o bleeding when urinating it started last Wednesday. Orthopedic Physical Therapist Required: No Allergies No Known Allergies Allergy (Verified 11/06/24 10:10) Medication List - Last Reconciled 11/06/24 by Yeny Painting, ENVIRONMENTAL COMMUNICATIONS SPECIALIST- amlodipine 5 mg PO DAILY 90 days aspirin 81 mg PO DAILY atorvastatin 80 mg PO DAILY 90 days losartan 100 mg PO DAILY 90 days omeprazole 20 mg PO DAILY 90 days Tobacco use date assessed: 11/01/24 Fall risk assessment: No Falls in past year Last assessed Fall Risk: 11/06/24 Dental Screening Dental Screen Date: 11/01/24 HPI HPI Comments History of Present Illness Details History of Present Illness The patient is an 84-year-old male presenting with blood in urine. Hematuria: - Noted Wednesday morning. - Significant blood visible in toilet bowl. - No pain or burning sensation reported. - Single episode; no reoccurrence. - Does not smoke; no fhx of bladder ca; denies known exposures. No pain. No fever or signs of infection. Wt stable. Positive Cologuard Test: - Positive test recently received. - Awaiting technical writing lead/mgr consultation. Review of Systems - Genitourinary: Reports blood in urine, denies pain or burning sensation. - Gastrointestinal: Denies changes in bowel habits, weight changes, family history of colon cancer. Due for flu shot Physical Exam General: Well developed, well nourished, in no acute distress. Appears stated age. Head: Normocephalic, atraumatic. Eyes: Pupils are equal, round and reactive to light and accommodation. Conjunctivae are clear. . Lungs: Clear to auscultation bilaterally. No rales, rhonchi or wheeze noted. Good air flow in all ortega. Heart: Regular rate and rhythm. No murmurs, click, rubs or gallops are noted. Abdomen: Bowel sounds present in all quadrants. The abdomen is soft, nontender, with no masses or organomegaly noted. No hernias are noted. No pain or pressure noted upon examination. No CVAT. Psych: Mood and affect appropriate. Results See UA below Discussion Notes I discussed with the patient the potential implications of painless hematuria, especially when combined with a positive Cologuard test, emphasizing the need for further evaluation to rule out cancer in both the bladder and the colon. I informed him that the urine sample would be sent for cytology to examine cellular abnormalities, and advised an urgent urology referral due to the concerning symptoms. Additionally, I communicated the importance of promptly addressing the positive Cologuard results with a technical writing lead/mgr. I have contacted the gastroenterology department to expedite the scheduling of an appointment. Urgent referral to a urology group based at [facility] was arranged at the patient's preference, with a specimen cup provided for any future episodes of bleeding. Patient was given time to ask questions. All questions were answered to their satisfaction. Assessment and Plan 1. Hematuria - Urgent referral to urology made. - Urine cytology ordered. - If no appt in the next 2 weeks, i will order imaging, otherwise defer to specialty. 2. Positive Cologuard Test - Gastroenterology referral needed. - Further evaluation for colon pathology advised. - [facility] sent urgent message to schedule. Patient Instructions - Await contact from urology for an appointment. - Schedule and attend the technical writing lead/mgr evaluation as advised. - Return to the healthcare facility if further episodes of bleeding occur, using the provided specimen cup if possible. - Check the patient portal for test results and further instructions. Consent The patient was informed about the significance of his symptoms in relation to possible underlying pathologies. Discussed the potential causes and necessitated consultations with urology and gastroenterology for thorough evaluation. The patient advised of sending urine sample for cytology. Consent obtained verbally for these diagnostic processes and for both referrals. Patient was informed and verbally consented to the use of an ambient scribe for clinic note documentation during this visit. Total time spent caring for the patient today was 30 minutes. This includes time spent before the visit reviewing the chart, time spent during the visit, and time spent after the visit on documentation, reviewing laboratory results, diagnostic imaging, medications, performing a medically necessary evaluation, counseling on diagnoses, care coordination, ordering appropriate tests, ordering appropriate medications, review of tests performed by other providers, reporting test results with the patient, communication with other healthcare providers. [facility] Medical History (Updated 11/06/24 @ 10:39 by [facility] No pertinent past medical history Surgical History History of rotator cuff surgery Family History Father Crohn's disease Mother Congestive heart failure Brother Lupus Social History (Updated 11/01/24 @ 16:01 by Rhiannon Juárez CMA) Household Members: Spouse Both parents involved: No Caregiver staying overnight: No Housing: Condominium Are you a primary personal care aid to a significant other at home: No Do you presently have visiting nurse or other home services: No 75 years or older and lives alone: No Alcohol intake: current Alcohol intake frequency: a few times a week Patient Tobacco Use Status: Never used Tobacco e-Cigarette/Vaping Use: Never Used Second Hand Smoke Exposure: No service: Yes Current occupational status: retired Current occupational exposures/hazards: No Cognitive needs: No Hearing needs: Yes (hearing aides) Vision needs: Yes (glasses) Questionnaire PHQ-9 Over the last 2 weeks, how often have you been bothered by any of the following problems? 1. Little interest or pleasure in doing things: not at all 2. Feeling down, depressed, or hopeless: not at all 3. Trouble falling or staying asleep, or sleeping too much: not at all 4. Feeling tired or having little energy: not at all 5. Poor appetite or overeating: not at all 6. Feeling bad about yourself - or that you are a failure or have let yourself or your family down: not at all 7. Trouble concentrating on things, such as reading the newspaper or watching television: not at all 8. Moving or speaking so slowly that other people could have noticed. Or the opposite - being so fidgety or restless that you have been moving around a lot more than usual: not at all 9. Thoughts that you would be better off or of hurting yourself in some way: not at all Total score: 0 Depression Screening Interpretation: Negative Depression Screening Done: Yes 86572 - PHQ-9 Billing: Yes Source: Developed by Drs. Jacky Pittman, Anuradha Salas, Bryce Grissom and colleagues, with an educational flex from [employer]. Thrive Questionnaire Date Thrive assessed: 11/06/24 I am a: Patient What is your living situation today?: I have a steady place to live Within the past 12 months, did the food you bought not last and you didn't have the money to get more?: Never true Within the past 12 months, did you worry whether your food would run out before you got money to buy more?: Never true Do you have trouble paying for medicines?: No Do you have trouble getting transportation to medical appointments?: No Do you have trouble paying your heating and electricity bill?: No Do you have trouble taking care of your child, family member or friend?: No Do you have trouble with day-to-day activities such as bathing, preparing meals, shopping, managing finances, etc.?: No Are you currently unemployed and looking for a job?: No Are you interested in more education?: No THRIVE Score: 0 ERWIN-7 AMB Questionnaire ERWIN-7 Date ERWIN - 7 assessed: 11/06/24 Feeling nervous, anxious, or on edge: 0 = Not at all Not being able to stop or control worryin = Not at all Worrying too much about different things: 0 = Not at all Trouble relaxin = Not at all Being so restless that it is hard to sit still: 0 = Not at all Becoming easily annoyed or irritable: 0 = Not at all Feeling afraid as if something awful might happen: 0 = Not at all Total ERWIN-7 score (0-4 normal; 5-9 mild; 10-14 moderate; 15-21 severe): 0 Source: Developed by Drs. Jacky Pittman, Anuradha Salas, Bryce Grissom and colleagues, with an educational flex from [employer]. ERWIN-7 Assessment Billing ERWIN-7 Assessment Tool: ERWIN-7 Assessment 35266 Physical exam (Primary Care) Vital Signs: Last Vital Signs Temp 97.8 F 11/06/24 10:10 Pulse 66 11/06/24 10:10 Resp 12 11/06/24 10:10 BP 124/66 11/06/24 10:10 Pulse Ox 93 11/06/24 10:10 Oxygen Delivery Method Room Air 11/06/24 10:10 BMI result Body Mass Index 28.2 Tobacco/Smoking Status: Tobacco use Status Tobacco use date assessed 11/01/24 11/06/24 10:12 Patient Tobacco Use Status Never used Tobacco 11/06/24 10:12 e-Cigarette/Vaping Use Never Used 11/06/24 10:12 PHQ-9: PHQ-9 Score PHQ-9: Total score 0 11/06/24 10:32 Depression Screening Interpretation: Negative Thrive Assessment: Date of Thrive Assessment Date Thrive assessed 11/06/24 11/06/24 10:12 Office Procedures Flu Questionnaire Does the patient have a severe egg allergy?: No Does the patient have severe life threatening allergies?: No Does the patient have a fever or illness today?: No Has the patient ever had Guillain-[place] Syndrome?: No Has the patient ever had any past reaction to a flu shot?: No Results AMB Urinalysis, Automated UA Leukoctes 0 Ami/uL Last Edit by Yoly Muñoz MA on 11/06/24 10:18 UA Nitrite Negative Last Edit by Yoly Muñoz MA on 11/06/24 10:18 UA Urobilinogen 3.5 mg/dL Last Edit by Yoly Muñoz MA on 11/06/24 10:18 UA Protein 0 mg/dL Last Edit by Yoly Muñoz MA on 11/06/24 10:18 UA pH 5.5 Last Edit by Yoly Muñoz MA on 11/06/24 10:18 UA Blood 0 Carl/uL Last Edit by Yoly Muñoz MA on 11/06/24 10:18 UA Specific [place] 1.015 Last Edit by Yoly Muñoz MA on 11/06/24 10:18 UA Ketone Negative Last Edit by Yoly Muñoz MA on 11/06/24 10:18 UA Bilirubin 0 mg/dL Last Edit by Yoly Muñoz MA on 11/06/24 10:18 UA Glucose 0 mg/dL Last Edit by Yoly Muñoz MA on 11/06/24 10:18 Immunizations Fluarix [id number] (PF) 45 mcg (15 mcg x 3)/0.5 mL IM syringe Performing Provider: TOÑA Alonso Performing Location: [facility] Family Medicine Administered by: Yoly Muñoz MA on 11/06/24 10:32 Dose Route Admin Location Dispensed Lot Number Expiration Date [facility] Broke Handler 0.5 mL IM Left Deltoid 0.5 mL [id number] 08/14/25 [id number] VIS Given Date VIS Provided VIS Publication Date 11/06/24 Single Vaccine 24 Eligibility Eligibility Date Funding Source Not [facility] Eligible 11/06/24 Private Results Reviewed Results Reviewed: Laboratory Last Values Urine pH (Auto) 5.5 11/06/24 10:13 Specific [place] (Auto) 1.015 11/06/24 10:13 Urine Protein (Auto) 0 mg/dL 11/06/24 10:13 Glucose (UA)(Auto) 0 mg/dL 11/06/24 10:13 Urine Ketones (Auto) Negative 11/06/24 10:13 Urine Blood (Auto) 0 Carl/uL 11/06/24 10:13 Urine Nitrite (Auto) Negative 11/06/24 10:13 Urine Bilirubin (Auto) 0 mg/dL 11/06/24 10:13 Urine Urobilinogen (Auto) 3.5 mg/dL 11/06/24 10:13 Leukocyte Esterase (Auto) 0 Ami/uL 11/06/24 10:13 Coding Level of Care Code Est Pt Level 4 (39115) Complex EM visit Add On G2211 Diagnoses Painless hematuria R31.9 Influenza vaccination administered at current visit Z23 Positive colorectal cancer screening using Cologuard test R19.5 Additional Codes ERWIN-7 Assessment Billing - ERWIN-7 Assessment Tool: ERWIN-7 Assessment 29605 ([id number]) PHQ-9 - 87780 - PHQ-9 Billing: Yes ([id number]) Assessment & Plan Assessment & Plan (1) Painless hematuria: Code(s): R31.9 - Hematuria, unspecified Category: Medical (2) Influenza vaccination administered at current visit: Code(s): Z23 - Encounter for immunization Category: Medical (3) Positive colorectal cancer screening using Cologuard test: Onset Date: ~10/2024 Code(s): R19.5 - Other fecal abnormalities Category: Medical Plan . Orders: Orders Urine Cytology Today R31.9 - Hematuria, unspecified AMB Urinalysis Automated Today Z13.9 - Encounter for screening, unspecified Urine Culture Today R31.9 - Hematuria, unspecified, R73.03 - Prediabetes Influenza [id number] Immunization Today Z23 - Encounter for immunization UA CC w/rflx Micro + Cult Today R30.0 - Dysuria Referrals Urology Referral R31.9 - Hematuria, unspecified
[2024-11-06 10:10] VITALS: BP 124/66; PULSE 66; RESP 12; TEMP 36.6; O2SAT 93; BMI 28.2
== END 2024-11-06 10:34 | disposition home or self-care (01) ==
LOC: HO.HMCFM 09:12
PROVIDERS: PCP Family Medicine; Visit Provider Nurse Practitioner Family
DX: R31.9 Hematuria, unspecified (principal); Z23 Encounter for immunization; R19.5 Other fecal abnormalities

== ENCOUNTER 2024-11-06 09:12 | Outpatient (REF) | payer OTHER, SELFPAY ==
[2024-11-06 14:51] LABS: Appearance Urine Clear; Glucose Urine UA Negative (Negative); PH 5.5 (5.0-9.0); Specific Gravity - Urine 1.015 (1.005-1.025)
== END 2024-11-06 09:13 | disposition home or self-care (01) ==
LOC: HO.LAB 09:12
PROVIDERS: PCP Family Medicine; Visit Provider Nurse Practitioner Family
DX: Z23 Encounter for immunization (principal); R31.9 Hematuria, unspecified; R73.03 Prediabetes; R19.5 Other fecal abnormalities
CPT/HCPCS: 81003; 87086; 88112; 90471; 90656; 96127

== ENCOUNTER 2024-11-09 13:05 | Outpatient (AMB) | payer OTHER, SELFPAY ==
--- NOTE | 2024-11-09 13:14 | MHC.OFFVIS ---
Vital Signs 11/09/24 13:15 Height 5 ft 10 in Weight 192 lb BMI 27.5 BP 134/61 Blood Pressure Location Lt brachial Position Sitting Pulse 71 Pulse Oximetry (%) 98 Oxygen Delivery Method Room Air Intake Visit Reasons: +cologuard Intake Note: Patient new consult for positive Cologuard Patient denies any GI issues. Audio Visual Manager Required: No Accompanied by: Self / Same As Patient Allergies No Known Allergies Allergy (Verified 11/09/24 13:14) Medication List - Last Reconciled 11/09/24 by Melina Franklin CNP amlodipine 5 mg PO DAILY 90 days aspirin 81 mg PO DAILY atorvastatin 80 mg PO DAILY 90 days losartan 100 mg PO DAILY 90 days omeprazole 20 mg PO DAILY 90 days HPI HPI +cologuard: Details: Patient is a 84-year-old male with PMH of hypertension, hyperlipidemia, BPH,, prediabetes, GERD. Patient is accompanied by . Can presents after a positive Cologuard test collected on 10-18-2024, with chief concern regarding appropriate next steps. He reports long-standing bowel habits alternating between daily stools and episodes of skipping up to two to three days without a bowel movement, which he states has been his personal baseline for years. Stools are generally easy to pass, with only occasional minor straining, and he denies abdominal pain, nausea, vomiting, rectal bleeding, or recent changes in stool caliber or pattern. He has a history of well-controlled heartburn on chronic omeprazole and remote esophageal stricture. There are no current red-flag GI symptoms. Comorbidities include hypertension, hyperlipidemia, possible remote skin cancer resection, and managed prediabetes. Patient awaiting CT scan and urology evaluation for a recent, hematuria after a brief episode earlier this week; urine sample submitted as part of this workup. Patient denies: fever/chills, n/v, appetite changes, , regurgitation,dysphasia, unintentional wt loss, ab pain or melena/hematochezia. Social hx: -ETOH use, approx 1x/week, typically a gin and tonic or half a beer -denies recreational drug use -non- smoker - family hx as below -denies significant cardiopulmonary history -tolerated anesthesia in the past without difficulty. PFSH Medical History (Updated 11/09/24 @ 14:03 by Melina Franklin CNP) Chronic constipation No pertinent past medical history Surgical History (Updated 11/09/24 @ 13:19 by Gracie Gibbons) Hx of colonoscopy History of rotator cuff surgery Family History Father Crohn's disease Mother Congestive heart failure Brother Lupus Social History Household Members: Spouse Both parents involved: No Caregiver staying overnight: No Housing: Condominium Are you a primary school child care attendant to a significant other at home: No Do you presently have visiting nurse or other home services: No 75 years or older and lives alone: No Alcohol intake: current Alcohol intake frequency: a few times a week Patient Tobacco Use Status: Never used Tobacco e-Cigarette/Vaping Use: Never Used Second Hand Smoke Exposure: No service: Yes Current occupational status: retired Current occupational exposures/hazards: No Cognitive needs: No Hearing needs: Yes (hearing aides) Vision needs: Yes (glasses) Review of Systems Const Reports as per HPI ENT Reports as per HPI Card Reports as per HPI Resp Reports as per HPI GI Reports as per HPI Reports as per HPI Physical Exam Vital Signs: Last Vital Signs Pulse 71 11/09/24 13:15 BP 134/61 11/09/24 13:15 Pulse Ox 98 11/09/24 13:15 Oxygen Delivery Method Room Air 11/09/24 13:15 BMI result Body Mass Index 27.5 Const General: healthy appearing, no acute distress and well developed Nutritional Appearance: average body habitus Orientation/consciousness: patient oriented x3 HEENT Head: Yes normal to inspection, Yes normocephalic and Yes atraumatic Face and sinus: Yes normal facial exam Eyes General: appearance normal, both eyes and all related structures Neck Neck: Yes normal visual inspection Resp Effort & Inspection: normal respiratory effort, able to speak in complete sentences, no tracheal deviation and symmetric chest movement Auscultation: rub present Cardio Jugular venous distension: no JVD Neuro General: patient oriented x3 Gait exam (Neuro): Normal gait present Psych Appearance: grossly normal Mental Status: mental status grossly normal Speech and movement: Normal speech and movement present Affect: normal affect Attitude: cooperative Thought process: Normal thought process present Thought content: Normal thought content present Insight: Good insight present (Psych) Judgement: Good judgement present (Psych) Assessment & Plan Assessment & Plan (1) Positive colorectal cancer screening using Cologuard test: Onset Date: ~10/2024 Code(s): R19.5 - Other fecal abnormalities Category: Medical Plan: Cologuard positive; guideline-based need for diagnostic colonoscopy to rule out advanced colonic neoplasia or pathology. Additional Testing: - Colonoscopy (urgent/routine within eight weeks) - Basic labs (CBC, renal, hepatic panel)?fasting labs ordered due to over one year since previous testing and presence of some new urinary/ symptoms. - CT scan per PCP/urology in progress (to clarify urinary/ complaint and assess for any possible malignancy/metastasis or unrelated pathology) Medication Management: - Hold aspirin 7 days prior to colonoscopy. - Continue other home meds (amlodipine, losartan, atorvastatin, omeprazole). - RX: Miralax split-prep + 4 bisacodyl tabs; prep to be mixed with 64 oz clear Gatorade (avoid red/blue/purple). RX sent to [facility]. Lifestyle Recommendations: - Emphasize dietary fiber, plenty of hydration. - Clear liquid diet day prior to colonoscopy; detailed written and video instructions provided. - NPO for four hours pre-procedure. - Arrange safe transport on day of procedure. Follow-Up: - Nurse to call for pre-procedure review within 1?2 weeks of endoscopy; colonoscopy to be scheduled within eight weeks. - GI office to notify of colonoscopy findings and labs; portal use encouraged. - PCP and urology to continue evaluation; GI to coordinate updating on any relevant findings. (2) GERD (gastroesophageal reflux disease): Code(s): K21.9 - Gastro-esophageal reflux disease without esophagitis Category: Medical Qualifiers: Esophagitis presence: esophagitis presence not specified Qualified Code(s): K21.9 - Gastro-esophageal reflux disease without esophagitis Plan: Well-documented, long-term, controlled on omeprazole; remote history of esophageal stricture. Additional Testing: No further testing unless new symptoms develop; possible repeat EGD if indicated at colonoscopy (patient declines at this time). Medication Management: Continue omeprazole as directed. Lifestyle Recommendations: Continue current regimen; report any dysphagia/regurgitation immediately. Follow-Up: Routine GI follow-up post-colonoscopy or sooner if symptoms change. (3) Chronic constipation: Code(s): K59.09 - Other constipation Category: Medical Plan: Mild, stable, non-progressive; no pain, bleeding, or alarm symptoms. Additional Testing: None indicated unless symptoms change. Medication Management: No daily Rx required at this time; PRN OTC measures acceptable. Lifestyle Recommendations: Encourage dietary fiber/water as above. Follow-Up: Monitor; notify GI if new constipation symptoms develop. Plan Follow-up colonoscopy or sooner as needed Time: I spent a total of 30 minutes on the date of encounter which includes: Preparing to see the patient (reviewed previous documentation, test results and medical history) Performing a medically appropriate exam and/or evaluation Ordering medications, tests, and procedures Documenting clinical information in the health record Orders: Orders Complete Blood Count Auto Diff Today R19.5 - Other fecal abnormalities Comprehensive [place]. Panel Fast Today R19.5 - Other fecal abnormalities Referrals GI Procedure Notification R19.5 - Other fecal abnormalities Medications: New bisacodyl Take per colonoscopy instructions 5 mg PO ONCE 4 tabs 0RF polyethylene glycol 3350 (Miralax) per colonoscopy prep instructions 238 grams PO ONCE 238 grams 0RF Coding Level of Care Code New Pt New Pt Level 3 (64272) Patient Type New Diagnoses Positive colorectal cancer screening using Cologuard test R19.5 Gastroesophageal reflux disease, unspecified whether esophagitis present K21.9 Esophagitis presence: esophagitis presence not specified Chronic constipation K59.09
[2024-11-09 13:15] VITALS: BP 134/61; PULSE 71; O2SAT 98; BMI 27.5
== END 2024-11-09 13:55 | disposition home or self-care (01) ==
LOC: HO.HGI 13:06
PROVIDERS: PCP Family Medicine; Visit Provider Nurse Practitioner Family
DX: R19.5 Other fecal abnormalities (principal); K21.9 Gastro-esophageal reflux disease without esophagitis; K59.09 Other constipation
CPT/HCPCS: 99203

== ENCOUNTER 2024-11-14 08:34 | Outpatient (REF) | payer MEDICARE, SELFPAY ==
[2024-11-14 11:36] LABS: MANUAL DIFF FLAG NO
[2024-11-14 11:42] LABS: Hematocrit 44.6 % (42.0-52.0); Hemoglobin 15.0 g/dl (14.0-18.0); Imm Gran Abs Auto 0.02 X10*3/uL (0.00-0.03); Imm Gran Pct Auto 0.3 % (0.0-0.4); Lymphocytes Absolute Auto 1.9 X10*3/uL (1.2-4.9); Mean Corpuscular HGB Conc 33.6 g/dl (31.0-36.0); Mean Corpuscular Hemoglobin 30.4 pg (27.0-33.0); Mean Corpuscular Volume 90.3 fL (80.0-98.0); NRBC Abs Auto 0.000 X10*3/uL (0.0-0.012); NRBC Pct Auto 0.0 /100WBC (0.0-0.2); Platelet Count 169 X10*3/uL (160-400); Red Blood Count 4.94 X10*6/uL (4.60-5.80); White Blood Count 6.0 X10*3/uL (4.8-10.8)
[2024-11-14 11:57] LABS: Alanine Aminotransferase 40 U/L (0-40); Albumin Level 4.3 g/dL (3.5-5.0); Alkaline Phosphatase 96 U/L (39-117); Anion Gap 10 (12-20); Aspartate Amino Transferase 26 U/L (5-37); Blood Urea Nitrogen 15 mg/dL (9-16); Calcium 8.8 mg/dL (8.4-10.2); Carbon Dioxide 28 mmol/L (22-29); Chloride 106 mmol/L (96-108); Estimated Glomerular Filt Rate > 60; Potassium 4.2 mmol/L (3.3-5.1); Sodium 140 mmol/L (135-145); Total Protein 6.6 g/dL (6.5-8.0)
== END 2024-11-14 08:35 | disposition home or self-care (01) ==
LOC: HO.WFDLDS 08:34
PROVIDERS: Visit Provider Nurse Practitioner Family
DX: R19.5 Other fecal abnormalities (principal)
CPT/HCPCS: 36415; 80053; 85025

== ENCOUNTER 2024-12-01 09:04 | Day surgery (SDC) | payer MEDICARE, SELFPAY ==
[2024-11-29 08:00] VITALS: BMI 27.5
--- NOTE | 2024-11-29 09:27 | HO.ANESPROP2 ---
Documented by User: Sri Martin NP 11/29/24 09:27 HPI - Anesthesia Eval Consult details Narrative: 84yo M for Colonoscopy PMFSH Active Problems Active Problems: All Active Problems Chronic constipation (Acute) Influenza vaccination administered at current visit (Acute) Painless hematuria (Acute) Positive colorectal cancer screening using Cologuard test (Acute ~10/2024) Neoplasm of uncertain behavior of skin (Acute) Imbalance (Acute) GERD (gastroesophageal reflux disease) (Acute) White coat syndrome with diagnosis of hypertension (Acute) Pre-operative clearance (Acute) Snoring (Acute) Excessive daytime sleepiness (Acute) Sleep apnea (Acute) Pre-diabetes (Acute) Annual physical exam (Acute) Elevated alanine aminotransferase (ALT) level (Acute) Elevated fasting glucose (Acute) Fatigue (Acute) Daytime sleepiness (Acute) Left shoulder pain (Acute) Glaucoma (Acute) Adult general medical exam (Acute) Screening for colon cancer (Acute) BPH (benign prostatic hyperplasia) (Acute) History of TIA (transient ischemic attack) (Acute) Screening for prostate cancer (Acute) Laboratory examination ordered as part of a routine general medical examination (Acute) Hyperlipidemia (Acute) Essential hypertension (Acute) Past Medical History Medical History BPH (benign prostatic hyperplasia) GERD (gastroesophageal reflux disease) Hyperlipidemia Sleep apnea Essential hypertension Chronic constipation Family History Family History Father Crohn's disease Mother Congestive heart failure Brother Lupus Surgical History Surgical History Hx of colonoscopy History of rotator cuff surgery Social History Social History Household Members: Spouse Housing: Condominium Are you a primary insurance healthcare consultant to a significant other at home: No Do you presently have visiting nurse or other home services: No Alcohol intake: current Alcohol intake frequency: a few times a week Patient Tobacco Use Status: Never used Tobacco e-Cigarette/Vaping Use: Never Used Second Hand Smoke Exposure: No Advance Directives: No Advance Directives Information Provided: Yes service: Yes Current occupational status: retired Current occupational exposures/hazards: No Cognitive needs: No Hearing needs: Yes (hearing aides) Vision needs: Yes (glasses) Meds Allergies Allergy/AdvReac Type Severity Reaction Status Date / Time No Known Allergies Allergy Verified 11/09/24 13:14 Home Medications ?Medication ?Instructions ?Recorded ?Confirmed ?Last Taken ?Type aspirin 81 mg tablet,delayed 81 mg PO DAILY 07/12/20 11/29/24 Unknown History release Exam Height,Weight and Vital Signs: Height 5 ft 10 in Weight 87.09 kg Assessment and Plan Assessment Anesthesia Assessment: Chart Reviewed Documented by User: Melissa Corado MD 12/01/24 09:29 PMFSH Past Medical History Medical History BPH (benign prostatic hyperplasia) GERD (gastroesophageal reflux disease) Hyperlipidemia Sleep apnea Essential hypertension Chronic constipation Family History Family History Father Crohn's disease Mother Congestive heart failure Brother Lupus Family history of problems with anesthesia: No Surgical History Surgical History Hx of colonoscopy History of rotator cuff surgery History of Problems with Anesthesia: No Social History Social History Household Members: [facility] Are you a primary insurance healthcare consultant to a significant other at home: No Do you presently have visiting nurse or other home services: No Alcohol intake: current Alcohol intake frequency: a few times a week Patient Tobacco Use Status: Never used Tobacco e-Cigarette/Vaping Use: Never Used Second Hand Smoke Exposure: No Advance Directives: No Advance Directives Information Provided: Yes service: Yes Current occupational status: retired Current occupational exposures/hazards: No Cognitive needs: No Hearing needs: Yes (hearing aides) Vision needs: Yes (glasses) Meds Allergies Allergy/AdvReac Type Severity Reaction Status Date / Time No Known Allergies Allergy Verified 11/09/24 13:14 Home Medications ?Medication ?Instructions ?Recorded ?Confirmed ?Last Taken ?Type aspirin 81 mg tablet,delayed 81 mg PO DAILY 07/12/20 11/29/24 Unknown History release Exam Airway Mallampati Class: II TM Dist: >3cm Neck ROM: Full Heart: rrr Lungs: cta Assessment and Plan Assessment Anesthesia Assessment: Anesthesia Plan Discussed Final Anesthetic Review Family History of Problems with Anesthesia: No History of Problems with Anesthesia: No NPO: Yes ASA Class: II Final Preanesthetic Review: No Changes in Pt Med Stat, Meds/Allgs Chart Reviewed, Consent Obtained/Reviewed and Anes Risks/Benef Reviewed Patient Risk: Low Procedure Risk: Low Anesthetic Plan Anesthetic Plan: MAC: Disposition: Standard PACU
[2024-12-01] VITALS (7 sets, daily range): BP systolic 90–131; BP diastolic 55–68; PULSE 63–70; RESP 11–18; TEMP 36.6–36.8; O2SAT 95–99; BMI 27.5
[2024-12-01] MEDS: Lactated Ringers 1,000 ML 100 ML IVCONT (09:28)
--- NOTE | 2024-12-01 09:42 | MHC.SHP ---
Pre-Procedural Eval Section A - 24 Hr Update-Section A only Date of Service: 12/01/24 The patient is an INPATIENT: No The patient has been examined within 24 hours of the surgical procedure. The History & Physical has been completed within 30 days and I have reviewed it.: Yes Section B - Complete if H&P > 30 days Chief Complaint: pos cologuard Allergies: Allergies Allergy/AdvReac Type Severity Reaction Status Date / Time No Known Allergies Allergy Verified 11/09/24 13:14 Plan Diagnosis/Plan: Unchanged I have reviewed the history and physical and performed a pertinent physical examination on my patient. No changes have occurred unless specified. Time Spent With Patient Time: Total time managing care of this patient today ____ minutes.
--- NOTE | 2024-12-01 10:48 | P.OPN-COLO_ITS ---
Colonoscopy Operative Note Operative Note Date of Service: 12/01/24 Narrative: Procedure: Colonoscopy Indication: Positive cologuard Endoscopist: Jolie Bustillo MD Anesthesia Provider: Ash Multani CRNA Anesthesia type: MAC Instrument: Olympus [id number]-H190L Consent: Indication, risks vs benefits, and alternatives were discussed with the patient who gave written informed consent to proceed. EKG, pulse, pulse oximetry and blood pressure were monitored throughout the procedure. Please see anesthesia flowsheet. Procedure: The patient was brought to the procedure room and placed in the left lateral decubitus position. IV medications were administered by the anesthesia provider in attendance. A digital rectal exam was performed which was abnormal due to finding of hemorrhoids. A distal attachment cap was affixed to the tip of the colonoscope which was then inserted through the anus and advanced through the colon to the cecum at 80 cm,and terminal ileum. Appendiceal orifice and ileocecal valve were identified. Mucosa was carefully examined under high definition white light as the instrument was slowly withdrawn in a retrograde panoramic fashion. Retroflexion was performed in rectum. The procedure was not difficult. There were no immediate obvious complications. The quality of the prep was BBPS: 2+2+3 = adequate Withdrawal time 14 minutes. Limitations: No limitations. Findings: Mucosa: Normal to cecum and terminal ileum. Protruding lesions: * 2 sessile polyp of size 2-5 mm in ascending colon. Cold snare polypectomy was performed. The polyp was completely removed and retrieved. * 2 sessile polyp of size 2-3 mm in transverse colon. Cold snare polypectomy was performed. The polyp was completely removed and retrieved. * 1 sessile polyp of size 8 mm in sigmoid colon. Cold snare polypectomy was performed. The polyp was completely removed and retrieved. * Medium internal hemorrhoids without stigmata of recent bleeding. Excavated lesions: * Moderate diverticulosis of sigmoid colon. Impression: 1. Normal colon mucosa 2. Total of 5 polyps removed 3. Diverticulosis 4. External and internal hemorrhoids Recommendations: - Follow path results. - Repeat colonoscopy in 3-5 years if patient is in good health.
== END 2024-12-01 12:30 | disposition home or self-care (01) ==
PROVIDERS: PCP Family Medicine; Visit Provider Internal Medicine
PROC: 0DJD8ZZ Inspection of Lower Intestinal Tract, Via Natural or Artificial Opening Endoscopic (ICD-10-PCS; CPT 45378; principal; 2024-12-01 10:50)
DX: R19.5 Other fecal abnormalities (principal); K59.09 Other constipation; K21.9 Gastro-esophageal reflux disease without esophagitis; K57.30 Diverticulosis of large intestine without perforation or abscess without bleeding; D12.2 Benign neoplasm of ascending colon; K51.40 Inflammatory polyps of colon without complications; K63.5 Polyp of colon; K64.4 Residual hemorrhoidal skin tags; K64.8 Other hemorrhoids
CPT/HCPCS: 45385; 88305; J2704

== ENCOUNTER → 2024-12-01 09:04 | Outpatient (BNV) | payer MEDICARE, SELFPAY | PROVIDERS: PCP Family Medicine; Visit Provider Internal Medicine | DX: Z12.11 Encounter for screening for malignant neoplasm of colon (principal); R19.5 Other fecal abnormalities; K63.5 Polyp of colon; K57.30 Diverticulosis of large intestine without perforation or abscess without bleeding; K64.8 Other hemorrhoids | CPT/HCPCS: 45385 ==

== ENCOUNTER 2024-12-06 09:26 | Outpatient (REF) | payer MEDICARE, SELFPAY ==
--- NOTE | ~2024-12-06 | CT_ITS ---
EXAMINATION: CT ABDOMEN AND PELVIS WITHOUT AND WITH CONTRAST CLINICAL INFORMATION: R19.5 - Other fecal abnormalities; GROSS HEMATURIA COMPARISON: None available. TECHNIQUE: Multidetector volumetric imaging was performed of the abdomen and pelvis before and after the IV administration of 85 mL of Omnipaque 300 intravenous contrast. Sagittal and coronal reformatted images were obtained on the technologist's workstation. This CT examination was performed using dose optimization techniques as appropriate, variously including the following: *Automated exposure control *Adjustment of mA and/or kV according to patient size (this includes techniques or standardized protocols for targeted exams where dose is matched to indication/reason for exam; i.e. extremities or head) *Use of iterative reconstruction technique FINDINGS: LUNG BASES: The visualized lung bases are unremarkable. LIVER, GALLBLADDER, AND BILIARY TREE: The liver is normal in size, shape, and attenuation. No focal hepatic lesion or biliary ductal dilatation is present. The gallbladder is unremarkable with no evidence of radiopaque gallstones, gallbladder wall thickening, or obvious pericholecystic inflammatory changes. PANCREAS: Unremarkable SPLEEN: Unremarkable ADRENAL GLANDS: Unremarkable KIDNEYS AND URETERS: There is a 2 x 5 mm faint calcification in the lower pole right kidney. Small hypoattenuating lesions in the left kidney are likely benign simple renal cyst. There is symmetric concentration and excretion of contrast into both ureters. There is no hydronephrosis. BLADDER: Unremarkable GASTROINTESTINAL TRACT: The small and large bowel are unremarkable. The appendix is not clearly identified. ABDOMINAL WALL: Small umbilical hernia contains fat. LYMPH NODES: Normal VASCULAR: Moderate atherosclerotic calcifications are present. There is no aneurysm. PELVIC VISCERA: Unremarkable OSSEOUS STRUCTURES: There are osteophytes involving both hip joints with minimal joint space narrowing. Mild degenerative sclerosis, cystic change, and osteophytes are present involving left greater than right SI joints. Facet sclerosis and osteophytes are present in the lower thoracic spine. Moderate degenerative disc disease with disc space narrowing, vacuum phenomena, and endplate osteophytes are present in the lower thoracic spine. CT/CT abdomen pelvis wo/w IV con IMPRESSION: Faint 2 x 5 mm calcification lower pole right kidney could represent early stone development or focal medullary nephrocalcinosis. Degenerative disc disease and facet osteoarthritis. Mild osteoarthritis bilateral hips and moderate left and mild right SI joint degenerative changes. Nonvisualized appendix. Fleischner guidelines were followed. Electronically signed by: Rhett Kumar MD 12/06/2024 10:54 AM EDT RP
[2024-12-06] MEDS: iohexoL 350 MG/ML 100 ML INFUS..BTL 85 ML IV (10:39)
[2024-12-06 15:09] LABS: Creatinine POC 1.0 mg/dL (0.5-1.4); GFR POC > 60
== END 2024-12-06 09:27 | disposition home or self-care (01) ==
LOC: HO.CT 09:26
PROVIDERS: PCP Family Medicine; Visit Provider Nurse Practitioner Family
DX: R19.5 Other fecal abnormalities (principal); R31.9 Hematuria, unspecified
CPT/HCPCS: 74178; 82565; Q9967

== ENCOUNTER → 2024-12-06 09:29 | Outpatient (BNV) | payer MEDICARE, SELFPAY | PROVIDERS: PCP Family Medicine; Visit Provider Radiology Diagnostic Radiology | DX: N28.89 Other specified disorders of kidney and ureter (principal); M16.0 Bilateral primary osteoarthritis of hip | CPT/HCPCS: 74178 ==

== ENCOUNTER 2024-12-19 12:52 | Outpatient (AMB) | payer MEDICARE, SELFPAY ==
--- NOTE | 2024-12-19 12:53 | A.OFFVIS_ITS ---
Intake Visit Reasons: hematuria Intake Note: New Patient is present for Hematuria Urology Rx:none Blood Thinners:aspirin Imaging completed: Abd CT 12/06/24 Smoker: NO Atmospheric Chemist Required: No Accompanied by: Spouse Allergies No Known Allergies Allergy (Verified 12/19/24 12:56) HPI Comments Details: Can is a pleasant male. He is a patient of Dr. Spears. Seen for the following urologic conditions - hematuria Episode of hematuria Reported to primary care UA today negative Nonsmoker On baby aspirin CT scan - no evidence of upper tract pathology For recommend office cystoscopy Weak stream with nocturia times 2-3 PFSH Medical History BPH (benign prostatic hyperplasia) GERD (gastroesophageal reflux disease) Hyperlipidemia Sleep apnea Essential hypertension Chronic constipation Surgical History Hx of colonoscopy History of rotator cuff surgery Family History Father Crohn's disease Mother Congestive heart failure Brother Lupus Social History Household Members: Spouse Both parents involved: No Caregiver staying overnight: No Housing: Condominium Are you a primary hospice care transitions coordinator to a significant other at home: No Do you presently have visiting nurse or other home services: No 75 years or older and lives alone: No Alcohol intake: current Alcohol intake frequency: a few times a week Patient Tobacco Use Status: Never used Tobacco e-Cigarette/Vaping Use: Never Used Second Hand Smoke Exposure: No service: Yes Current occupational status: retired Current occupational exposures/hazards: No Cognitive needs: No Hearing needs: Yes (hearing aides) Vision needs: Yes (glasses) Review of Systems Const Denies chills and Denies fever(s) Card Reports no additional complaints and Denies syncope Resp Denies cough GI Denies abdominal pain and Denies heartburn Reports as per HPI and Denies change in libido Neuro Denies syncope Psych Denies change in libido Endo Denies change in libido Physical Exam Const General: cooperative, healthy appearing, comfortable and no acute distress Orientation/consciousness: patient oriented x3 HEENT Face and sinus: Yes normal facial exam Mouth: moist mucous membranes Neck Neck: Yes normal visual inspection, Yes full ROM and Yes trachea midline Chest Chest palpation & inspection: normal inspection of the chest Resp Effort & Inspection: normal respiratory effort, able to speak in complete sentences and no respiratory distress GI Inspection: Yes normal to inspection Back/Spine/Pelvis Cervical Spine: normal cervical lordosis Thoracic/Lumbar Spine: thoracic and lumbar spine normal to inspection Skin General skin exam: no rashes or lesions noted Neuro General: patient oriented x3, gait normal, tone normal and moves all extremities Extrem General: Yes normal to inspection and Yes capillary refill normal Results AMB Urinalysis, Automated UA Leukoctes 0 Ami/uL Last Edit by Bhumika Olivares [facility] on 12/19/24 13:03 UA Nitrite Negative Last Edit by Bhumika Olivares [facility] on 12/19/24 13:03 UA Urobilinogen 0.2 mg/dL Last Edit by Bhumika Olivares [facility] on 12/19/24 13:03 UA Protein 0 mg/dL Last Edit by Bhumika Olivares [facility] on 12/19/24 13:03 UA pH 6.0 Last Edit by Bhumika Olivares [facility] on 12/19/24 13:03 UA Blood 0 Carl/uL Last Edit by Bhumika Olivares [facility] on 12/19/24 13:03 UA Specific [place] 1.015 Last Edit by Bhumika Olivares [facility] on 12/19/24 13:0 3 UA Ketone Negative Last Edit by Bhumika Olivares [facility] on 12/19/24 13:03 UA Bilirubin 0 mg/dL Last Edit by Bhumika Olivares [facility] on 12/19/24 13:03 UA Glucose 0 mg/dL Last Edit by Bhumika Olivares [facility] on 12/19/24 13:03 Results Reviewed Results Reviewed: Laboratory Last Values Urine pH (Auto) 6.0 12/19/24 13:02 Specific [place] (Auto) 1.015 12/19/24 13:02 Urine Protein (Auto) 0 mg/dL 12/19/24 13:02 Glucose (UA)(Auto) 0 mg/dL 12/19/24 13:02 Urine Ketones (Auto) Negative 12/19/24 13:02 Urine Blood (Auto) 0 Carl/uL 12/19/24 13:02 Urine Nitrite (Auto) Negative 12/19/24 13:02 Urine Bilirubin (Auto) 0 mg/dL 12/19/24 13:02 Urine Urobilinogen (Auto) 0.2 mg/dL 12/19/24 13:02 Leukocyte Esterase (Auto) 0 Ami/uL 12/19/24 13:02 Assessment & Plan Assessment & Plan (1) Painless hematuria: Code(s): R31.9 - Hematuria, unspecified Category: Medical Plan Office cystoscopy Patient Instructions: This note is constructed using voice recognition software. While every effort has been made to ensure accuracy electric blanket wirer errors may have been included. Imaging studies, laboratory and physical exam results were discussed and reviewe d in detail. No major barriers to patient understanding were identified. An opportunity to ask questions regarding the treatment plan was provided. All questions were answered. The patient expressed understanding and agreement with the above treatment plan. The patient is aware they should contact our office by phone for worsening of their current condition or the appearance of new urologic symptoms. Compliance is encouraged with any medications and followup testing that is ordered. It is a privilege to participate in the urologic care of your patient. If you have any questions or concerns regarding treatment for the above conditions, or other urologic issues, please do not hesitate to contact me. The office telephone contact is [phone]. Sincerely, Dr Bon Sheriff MD, [facility] - Urology Compassionate Specialist Care for the Genitourinary System Coding Level of Care Code New Pt Level 3 (77612) Diagnoses Painless hematuria R31.9
== END 2024-12-19 13:28 | disposition home or self-care (01) ==
LOC: HO.HUSH 12:52
PROVIDERS: PCP Family Medicine; Visit Provider Urology
DX: R31.9 Hematuria, unspecified (principal)
CPT/HCPCS: 99203

== ENCOUNTER → 2024-12-19 12:52 | Outpatient (BNVA) | payer MEDICARE, SELFPAY | PROVIDERS: PCP Family Medicine; Visit Provider Urology | DX: R31.9 Hematuria, unspecified (principal) | CPT/HCPCS: 99202 ==